=== PATIENT | female | born 1955 | race Caucasian/White ===

== ENCOUNTER 2019-05-08 13:40 | Outpatient (CLI) | payer OTHER, SELFPAY ==
[2019-05-08 15:19] LABS: Cholesterol 259 mg/dL (0-200); HDL Direct 61 mg/dL; Triglycerides 122 mg/dL (<150)
[2019-05-08 15:30] LABS: LDL Cholesterol Direct 154 mg/dL
[2019-05-08 15:52] LABS: Hemoglobin A1C 5.5 % (<5.7)
== END 2019-05-08 13:41 | disposition home or self-care (01) ==
DX: R53.83 Other fatigue (principal); E78.5 Hyperlipidemia, unspecified
CPT/HCPCS: 36415; 80061; 83036

== ENCOUNTER 2020-08-18 07:55 | Outpatient (CLI) | payer OTHER, SELFPAY ==
[2020-08-18 08:43] LABS: Hematocrit 39.6 % (37.0-47.0)
[2020-08-18 09:01] LABS: Add Urine Microscopic? NO; Appearance Urine Clear (Clear); Bilirubin Urine Negative (Negative); Blood Urine Negative (Negative); Color Urine Yellow (Yellow); Glucose Urine UA Negative (Negative); Ketones Urine Negative (Negative); Leukocyte Esterase Ur Negative LEU/UL (Negative); Nitrate Urine Negative (Negative); Protein Urine Negative (Negative); Specific Grav Ur 1.025 (1.001-1.035); Urobilinogen Urine Negative mg/dL (<2.0)
[2020-08-18 09:05] LABS: Anion Gap 7 mmol/L (8-16); Blood Urea Nitrogen 15 mg/dL (7-17); Calcium 9.2 mg/dL (8.4-10.2); Carbon Dioxide 28 mmol/L (22-30); Chloride 105 mmol/L (98-107); Cholesterol 192 mg/dL (0-200); Estimated Glomerular Filt Rate > 60; Glucose 100 mg/dL (65-105); HDL Direct 73 mg/dL; Potassium 4.3 mmol/L (3.4-5.0); Sodium 140 mmol/L (137-145); Triglycerides 57 mg/dL (<150)
[2020-08-18 09:15] LABS: LDL Cholesterol Direct 83 mg/dL
== END 2020-08-18 07:56 | disposition home or self-care (01) ==
LOC: ANHLAB 07:59
DX: E78.5 Hyperlipidemia, unspecified (principal)
CPT/HCPCS: 36415; 80048; 80061; 81003; 85014; 85018

== ENCOUNTER → 2021-09-04 16:55 | Outpatient (CLI) | payer OTHER, SELFPAY ==
--- NOTE | ~2021-09-04 | XR_ITS ---
EXAM: XR wrist LT min 3V DATE: 09/04/2021 17:20 HISTORY: Primary osteoarthritis, left wrist . COMPARISON: None available. FINDINGS: Normal mineralization. No fracture or dislocation. No lytic or blastic lesion. Joint space s are maintained. No erosion or periosteal change. Soft tissues within normal limits. IMPRESSION: Normal left wrist radiograph findings. Reviewed, dictated and finalized at location K.
== END ==
PROVIDERS: PCP Family Medicine; Visit Provider Plastic Surgery
DX: M19.032 Primary osteoarthritis, left wrist (principal)
CPT/HCPCS: 73110

== ENCOUNTER → 2021-09-14 11:50 | Outpatient (CLI) | payer OTHER, SELFPAY ==
--- NOTE | ~2021-09-14 | US_ITS ---
EXAMINATION: US soft tissue UE LT DATE: 09/14/2021 12:07 INDICATION: Left thenar mass. Ganglion cyst. Pain. TECHNIQUE: Multiple grayscale and Doppler ultrasound images of the region of concern at the anterolat eral left carpus near the first metacarpophalangeal joint were obtained. COMPARISON: Radiographs dated 09/04/2021 FINDINGS: No ganglion cyst or other abnormal masses or fluid collections identified. As marginal osteophytes co nsistent with osteoarthritis at one of the joint space near the region of concern although the identi ty of the joints is noted to be ascertained from the provided images. IMPRESSION: 1. Osteoarthritis small marginal osteophytes at one of the joints in the region of concern. No gangli on cyst or other abnormal masses or fluid collections. Reviewed, dictated and finalized at location A. IMPRESSION: 1. Osteoarthritis small marginal osteophytes at one of the joints in the region of concern. No ganglion cyst or other abnormal masses or fluid collections.
== END ==
PROVIDERS: PCP Family Medicine; Visit Provider Plastic Surgery
DX: R22.32 Localized swelling, mass and lump, left upper limb (principal); M19.072 Primary osteoarthritis, left ankle and foot
CPT/HCPCS: 76882

== ENCOUNTER 2021-11-01 13:15 | Outpatient (RCR) | payer OTHER, SELFPAY ==
--- NOTE | 2021-10-11 15:00 | OTOPEVAL1 ---
Evaluation Information Assessment Status Evaluation Diagnosis Chronic pain left thenar mass Onset about 6 months ago Subjective Information Patient reports pain and tenderness in the thenar eminence of the left palm. She can recreate sharp , shooting pain when she hyperextends her thumb. X-rays negative for OA. US negative for cyst. She notes that she was diagnosed with bilateral carpal tunnel about 8 years ago. She states that functionally she has figured out ways to avoid putting pressure to this area and has been compensating by using her right hand more. Reported Pain Level Pain Score 2: Self Report Additional Pain Score Comments Pain with pressure to the thenar eminence or when thumb is hyperextended. Reaches 8/10 with pressure/hyperextension, but subsides to 0/10 quickly. Assessment OT Clinical Summary Juanita is a 66 year-old, right handed female with atypical left hand pain, localized to the left thenar eminence. Sensation tests are normal. She has pain with palpation/pressure to this area as well as with thumb hyperextension. Symptoms could be consistent with nerve irritation of the recurrent branch of the median nerve. Therapy plan - have the patient wear a thumb spica brace x3 weeks to rest this area and complete nerve glides. She is to follow up in 3 weeks to assess the efficacy of this intervention. She verbalizes excellent understanding of all materials. Plan of Care Interventions Therapeutic Exercise,Check Out for Orthotic/Pr OT Services Indicated Yes Treatment Frequency and 0-1x/week for 3 weeks. Duration These treatments will address the objective and functional deficits as defined above. The patient will be advanced safely and appropriately in order for the patient to progress towards his/her prior level of function. Additional exercises will be introduced and as well as a comprehensive home exercise program upon discharge, if needed, ?to ensure carryover of functional gains achieved in the clinic. This treatment plan has been reviewed and agreement upon by the patient.
--- NOTE | 2021-11-01 14:02 | OTOPDC ---
Assessment and note entered by Newton Montiel, JUDITR/Laith, CHT Evaluation Information Assessment Status Discharge Diagnosis chronic pain left thenar mass Onset about 6 months ago Subjective Information Juanita is a 66 year-old, right handed female with atypical left hand pain, localized to the left thenar eminence. Sensation tests are normal. She has pain with palpation/pressure to this area as well as with thumb hyperextension. Symptoms could be consistent with nerve irritation of the recurrent branch of the median nerve. It was recommended that she wear an immobilizer. She declined having a thermoplastic one fabricated in the clinic. Juanita has been resting her hand for 3 weeks. She states she did not end up getting a splint to immobilize the thumb, just has been taking care to not aggravate this area. 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 She states the hand is 40% better. Reported Pain Level Pain Score 0: Self Report Additional Pain Score Comments No pain at rest or when not moving. With active ROM or pressure over the thenar eminence, the pain increases to 5/10. This has reduced from a an 8/10. She notes that overall the pain is decreased, but she continues to have some tenderness in this area. Assessment OT Clinical Summary Assessment today shows patient is making slow, steady progress with reduced pain/reduced nerve irritation. She did not go the immobilization route as recommended. She reports just resting the thumb. Continued to recommend a brace, especially if her pain plateaus. At this time she is independent with all materials and declines need to follow up further. No continued skilled OT indicated at this time. Plan of Care OT Services Indicated No
== END 2021-11-01 15:19 | disposition home or self-care (01) ==
LOC: ANHOT 13:15
PROVIDERS: PCP Family Medicine; Visit Provider Plastic Surgery
DX: M79.645 Pain in left finger(s) (principal)
CPT/HCPCS: 97110; 97166

== ENCOUNTER → 2021-11-24 09:53 | Outpatient (CLI) | payer OTHER, SELFPAY ==
--- NOTE | ~2021-11-24 | DEXA_ITS ---
Bone Density Report Name: MARTIN COHEN Age: 66 Sex: Female Ethnicity: White Date of : 1955 Indication: postmenopausal; screening for osteoporosis; Referring Provider: JEWEL HYATT Study: Bone densitometry was performed. Exam Date: November 24, 2021 Accession number: [id number] Bone Density: Region BMD T-score Z-score Classification AP Spine (L1-L4) 0.898 -1.4 0.4 Osteopenia Femoral Neck (Left) 0.615 -2.1 -0.6 Osteopenia Total Hip (Left) 0.850 -0.8 0.4 Normal Femoral Neck (Right) 0.600 -2.2 -0.8 Osteopenia Total Hip (Right) 0.784 -1.3 -0.1 Osteopenia Total Hip Mean 0.817 -1.1 0.2 Osteopenia World Health Organization criteria for BMD impression classify patients as: Normal (T-score at or above -1.0), Osteopenia (T-score between -1.0 and -2.5), or Osteoporosis (T-score at or below -2.5). 10-year Fracture Risk(1): Major Osteoporotic Fracture 11% Hip Fracture 1.7% Reported Risk Factors: [place] (), Neck BMD=0.600, BMI=28.4 (1) FRAX(R) Version 3.08. Fracture probability calculated for an untreated patient. Fracture probability may be lower if the patient has received treatment. Clinical Information Provided by Patient: Patient maximum height was 63.0 Menopause Age: 57 Drinks caffeinated beverages Onset of menses at age 16 Number of children 2 Impression: The patient has low bone mass, based on the Right Femoral Neck T-score. The patient has an estimated ten-year risk of hip fracture of 1.7% and an estimated ten-year risk of major fracture of 11%, based on the WHO FRAX algorithm. Discussion: BONE DENSITY IS LOW AT ONE OR MORE SKELETAL SITES. This patient's lowest T-score is low at one or more skeletal sites. It meets the World Health Organization's (WHO) criteria for ?low bone mass? (T-score between -1.0 and -2.5). The patient's 10-year risk of fracture as calculated by FRAX is less than the threshold where pharmacological therapy is recommended by the National Osteoporosis Foundation (NOF). However, all treatment decisions require clinical judgment and consideration of individual patient factors, including patient preferences, comorbidities, previous drug use, risk factors not captured in the FRAX model (e.g., frailty, falls, vitamin D deficiency, increased bone turnover, interval significant decline in bone density) and possible under or overestimation of fracture risk by FRAX. The patient should follow a healthful lifestyle (good nutrition with adequate calcium and vitamin D, and appropriate weight-bearing exercise). Follow-Up: Consider repeating this study in 2 to 3 years to reassess this patient's status, or sooner if there is some new clinical indication. Reported by: ELIDA on 11/24/2021 10:17:00 AM. Reviewed, dictated and
== END ==
PROVIDERS: PCP Family Medicine; Visit Provider Physician Assistant
DX: Z78.0 Asymptomatic menopausal state (principal); M85.88 Other specified disorders of bone density and structure, other site; M85.852 Other specified disorders of bone density and structure, left thigh; M85.851 Other specified disorders of bone density and structure, right thigh
CPT/HCPCS: 77080

== ENCOUNTER 2021-12-12 07:09 | Outpatient (CLI) | payer OTHER, SELFPAY ==
[2021-12-12 07:35] LABS: Basophils Percent Auto 0.7 % (0.2-1.2); Eosinophils Absolute Auto 0.2 K/mm3 (0-0.3); Eosinophils Percent Auto 3.3 % (0-4.4); Hematocrit 42.3 % (37.0-47.0); Immature Granulocyte Absolute 0.02 K/mm3 (0.00-0.031); Immature Granulocyte Percent A 0.4 % (0-0.5); Mean Corpuscular HGB Conc 33.1 g/dl (32-36); Mean Corpuscular Hemoglobin 31.1 pg (26-34); Mean Platelet Volume 8.8 fl (7.4-10.4); Monocytes Absolute Auto 0.4 K/mm3 (0.1-0.6); Monocytes Percent Auto 6.7 % (2.6-8.5); Neutrophils Absolute Auto 2.8 K/mm3 (1.3-6.7); Neutrophils Percent Auto 50.9 % (45.5-73.1); Platelet Count Result 330 k/mm3 (150-375); Red Cell Distribution Width 12.4 % (11.5-14.5); White Blood Count 5.5 K/mm3 (4.5-10.0)
[2021-12-12 07:39] LABS: Alanine Aminotransferase 18 U/L (6-35); Albumin Level 4.4 g/dL (3.5-5.1); Alkaline Phosphatase 49 U/L (38-126); Anion Gap 11 mmol/L (8-16); Aspartate Amino Transferase 28 U/L (14-36); Bilirubin,Total 0.4 mg/dL (0.2-1.3); Blood Urea Nitrogen 17 mg/dL (7-17); Carbon Dioxide 29 mmol/L (22-30); Chloride 102 mmol/L (98-107); Cholesterol 188 mg/dL (0-200); Estimated Glomerular Filt Rate 56; Glucose 111 mg/dL (65-110); HDL Direct 68 mg/dL; Potassium 4.3 mmol/L (3.4-5.0); Sodium 142 mmol/L (137-145); Triglycerides 70 mg/dL (<150)
[2021-12-12 07:43] LABS: Appearance Urine Clear (Clear); Bilirubin Urine Negative (Negative); Blood Urine Negative (Negative); Color Urine Yellow (Yellow); Glucose Urine UA Negative (Negative); Ketones Urine Negative (Negative); Leukocyte Esterase Ur Negative LEU/UL (NEGATIVE); Nitrate Urine Negative (Negative); Protein Urine Negative (Negative); Urobilinogen Urine 0.2 mg/dL (<2.0)
[2021-12-12 07:50] LABS: LDL Cholesterol Direct 87 mg/dL
[2021-12-12 08:17] LABS: Add Urine Microscopic? NO
== END 2021-12-12 07:10 | disposition home or self-care (01) ==
LOC: ANHLAB 07:10
PROVIDERS: PCP Family Medicine; Visit Provider Physician Assistant
DX: Z00.00 Encounter for general adult medical examination without abnormal findings (principal); E78.5 Hyperlipidemia, unspecified; F32.9 Major depressive disorder, single episode, unspecified; K21.9 Gastro-esophageal reflux disease without esophagitis
CPT/HCPCS: 36415; 80053; 80061; 81003; 84443; 85025

== ENCOUNTER 2022-01-19 10:45 | Outpatient (CLI) | payer OTHER, SELFPAY ==
--- NOTE | ~2022-01-19 | MM_ITS ---
EXAMINATION: MM screening robby BI w daniel HISTORY: Screening mammogram TECHNIQUE: Craniocaudal and mediolateral oblique 3-D tomosynthesis images were obtained and synthetic 2-D images were generated. CAD analysis was submitted and interpreted. COMPARISON: No prior mammogram is available for comparison at this institution. BREAST PARENCHYMAL COMPOSITION: There are scattered areas of fibroglandular density. FINDINGS: No suspicious mass, calcification, or architectural distortion are identified in either bridger ast to suggest malignancy. IMPRESSION: 1. No mammographic evidence of malignancy. 2. Recommend routine screening mammography in one year. BI-RADS Category 1: Negative Reviewed, dictated and finalized at location A. E RELINER
== END 2022-01-19 10:46 | disposition home or self-care (01) ==
LOC: ANHIMG 10:48
PROVIDERS: PCP Family Medicine; Visit Provider Family Medicine
DX: Z12.31 Encounter for screening mammogram for malignant neoplasm of breast (principal)
CPT/HCPCS: 77063; 77067

== ENCOUNTER 2022-01-25 02:07 | Day surgery (SDC) | payer OTHER, SELFPAY ==
[2022-01-15 15:44] VITALS: BMI 27.8
[2022-01-19 13:27] VITALS: BMI 28.3
--- NOTE | 2022-01-24 17:15 | PM.HPGS ---
History of Present Illness History of Present Illness Consent: Risks, benefits, and alternatives have been discussed and questions answered. Patient agrees to proceed with procedure. Chief complaint: screening colonoscopy Narrative: Juanita Cancino is a 66 year old female Who was referred for colon cancer screening. her last colonoscopy was about 10 years ago. Review of Systems Review of Systems: All systems reviewed & are unremarkable except as noted in HPI and below PMFSH Past Medical History Medical History Depression GERD (gastroesophageal reflux disease) HLD (hyperlipidemia) Overweight (BMI 25.0-29.9) Surgical History Surgical History History of appendectomy History of carpal tunnel release History of section History of eye surgery History of rectal surgery Family History Family History Mother Diabetes mellitus Sibling Cerebrovascular accident Social History Social History Smoking status: Never smoker Second hand tobacco smoke exposure: No Alcohol intake: current Alcohol use details: rarely Substance use: never Substance use type: does not use Living arrangements: with family Gender identity (if verbalized by the patient): Female Sexual Orientation (if Verbalized by the Patient): Straight or Heterosexual Spiritual care concerns: No Meds Home Medications and Allergies Home Medications Medication Instructions Recorded Confirmed Type aspirin 81 mg tablet,delayed 81 mg PO DAILY 09/26/20 01/25/22 History release venlafaxine 75 mg tablet,extended 225 mg PO DAILY 09/26/20 01/25/22 History release 24 hr rosuvastatin 5 mg tablet (Crestor) 5 mg PO DAILY #90 tabs 09/14/21 01/25/22 Rx esomeprazole magnesium 40 mg 40 mg PO DAILY #90 caps 12/14/21 01/25/22 Rx capsule,delayed release (Nexium) Allergies Allergy/AdvReac Type Severity Reaction Status Date / Time No Known Allergies Allergy Verified 01/25/22 10:07 Exam Const: General: alert Orientation/consciousness: patient oriented x3 Resp: Auscultation: clear to auscultation bilaterally Cardio: Rhythm: regular rhythm GI: GI Palp: Yes Soft to palpation and No Tenderness to palpation present (GI) Neuro: General: patient oriented x3 Assessment and Plan Assessment and plan (1) Colon cancer screening: Code(s): Z12.11 - Encounter for screening for malignant neoplasm of colon Status: Acute Assessment and Plan: Colonoscopy with possible biopsy or polypectomy or cautery or injection of substances.
--- NOTE | 2022-01-25 09:05 | WPDANESEPPF ---
Anes - Initial Pre Proc Eval Procedure: Operation Date: 01/25/22 11:00 Proposed Procedures p Screening Colonoscopy - Jayant Muñoz MD Date/Time: 01/25/22 09:05 Surgeon: Jayant Muñoz MD Pre Op Diagnosis: screening colonoscopy Patient Data Age: 66 Gender: F Height: 1.59 m Weight: 71.5 kg Allergies Allergy/AdvReac Type Severity Reaction Status Date / Time No Known Allergies Allergy Verified 01/25/22 10:07 Home Medications Medication Instructions Recorded Confirmed Type aspirin 81 mg tablet,delayed 81 mg PO DAILY 09/26/20 01/25/22 History release venlafaxine 75 mg tablet,extended 225 mg PO DAILY 09/26/20 01/25/22 History release 24 hr rosuvastatin 5 mg tablet (Crestor) 5 mg PO DAILY #90 tabs 09/14/21 01/25/22 Rx esomeprazole magnesium 40 mg 40 mg PO DAILY #90 caps 12/14/21 01/25/22 Rx capsule,delayed release (Nexium) Patient hx anesthesia problems: none Family hx anesthesia problems: none Results Review: All pre-operative results and documents have been reviewed as part of the pre-operative evaluation. [facility] Past Medical History Medical History (Updated 01/25/22 @ 09:06 by Efra Sylvester MD) Depression GERD (gastroesophageal reflux disease) HLD (hyperlipidemia) Overweight (BMI 25.0-29.9) Surgical History Surgical History History of appendectomy History of carpal tunnel release History of section History of eye surgery History of rectal surgery Family History Family History Mother Diabetes mellitus Sibling Cerebrovascular accident Social History Social History Smoking status: Never smoker Second hand tobacco smoke exposure: No Alcohol intake: current Alcohol use details: rarely Substance use: never Substance use type: does not use Living arrangements: with family Gender identity (if verbalized by the patient): Female Sexual Orientation (if Verbalized by the Patient): Straight or Heterosexual Spiritual care concerns: No Anes - Eval Final PreProcedure Day of Procedure 01/25/22 09:05 Patient weight: overweight Heart: regular rate and rhythm Lungs: clear to auscultation and normal air movement Airway: Mallampati scale class II Neurological: alert and oriented Last oral intake: >/= 8 hours ASA classification: II Emergent: no Anesthetic plan: proceed Anesthesia type and monitoring: general GIVS Results Review: All pre-operative results and documents have been reviewed as part of the pre-operative evaluation. Informed Consent: The patient's anesthetic plan and its attendant risks and benefits were discussed with the patient/family/POA. Questions were solicited and answers provided to the satisfaction of the patient/family/POA.
[2022-01-25 10:00] VITALS: BP 137/71; PULSE 71; RESP 18; TEMP 36.6; O2SAT 98; BMI 27.5
[2022-01-25] MEDS: LACTATED RINGERS 1,000 ML 150 ML IV CONT (10:21)
[2022-01-25 11:29] VITALS: BP 110/58; PULSE 63; RESP 20; O2SAT 96
[2022-01-25 11:39] VITALS: BP 111/68; PULSE 60; RESP 15; O2SAT 98
[2022-01-25 11:49] VITALS: BP 126/89; PULSE 58; RESP 20; O2SAT 98
== END 2022-01-25 12:02 | disposition home or self-care (01) ==
PROVIDERS: PCP Family Medicine; Visit Provider Internal Medicine Gastroenterology
PROC: 0DJD8ZZ Inspection of Lower Intestinal Tract, Via Natural or Artificial Opening Endoscopic (ICD-10-PCS; CPT 45378; principal; 2022-01-25 11:00)
DX: Z12.11 Encounter for screening for malignant neoplasm of colon (principal); E78.5 Hyperlipidemia, unspecified; K21.9 Gastro-esophageal reflux disease without esophagitis; F32.A Depression, unspecified
CPT/HCPCS: 45378; J7120

== ENCOUNTER 2022-09-01 08:13 | Outpatient (CLI) | payer MEDICARE, SELFPAY ==
[2022-09-01 09:59] LABS: Anion Gap 7 mmol/L (8-16); Blood Urea Nitrogen 18 mg/dL (7-17); Carbon Dioxide 29 mmol/L (22-30); Chloride 102 mmol/L (98-107); Estimated Glomerular Filt Rate 56; Glucose 95 mg/dL (65-110); Potassium 4.4 mmol/L (3.4-5.0); Sodium 138 mmol/L (137-145)
[2022-09-01 10:30] LABS: Hemoglobin A1C 5.6 % (<5.7)
== END 2022-09-01 08:14 | disposition home or self-care (01) ==
LOC: ANHLAB 08:16
PROVIDERS: PCP Family Medicine; Visit Provider Physician Assistant
DX: R73.01 Impaired fasting glucose (principal); N28.9 Disorder of kidney and ureter, unspecified
CPT/HCPCS: 36415; 80048; 83036

== ENCOUNTER 2023-02-12 07:21 | Outpatient (CLI) | payer MEDICARE, SELFPAY ==
[2023-02-12 08:05] LABS: Appearance Urine Clear (Clear); Bilirubin Urine Negative (Negative); Blood Urine Negative (Negative); Color Urine Yellow (Yellow); Glucose Urine UA Negative (Negative); Ketones Urine Negative (Negative); Leukocyte Esterase Ur Negative LEU/UL (NEGATIVE); Nitrate Urine Negative (Negative); Protein Urine Negative (Negative); Specific Grav Ur 1.023 (1.001-1.035); Urobilinogen Urine 0.2 mg/dL (<2.0); pH Urine 6.5 (5.0-9.0)
[2023-02-12 08:07] LABS: Alanine Aminotransferase 16 U/L (6-35); Alkaline Phosphatase 53 U/L (38-126); Anion Gap 5 mmol/L (8-16); Aspartate Amino Transferase 27 U/L (14-36); Bilirubin,Total 0.4 mg/dL (0.2-1.3); Blood Urea Nitrogen 17 mg/dL (7-17); Calcium 8.9 mg/dL (8.4-10.2); Carbon Dioxide 29 mmol/L (22-30); Chloride 106 mmol/L (98-107); Cholesterol 188 mg/dL (0-200); Estimated Glomerular Filt Rate > 60; Glucose 95 mg/dL (65-110); HDL Direct 72 mg/dL; Potassium 3.9 mmol/L (3.4-5.0); Sodium 140 mmol/L (137-145); Triglycerides 60 mg/dL (<150)
[2023-02-12 08:13] LABS: Hemoglobin A1C 5.7 % (<5.7)
[2023-02-12 08:21] LABS: LDL Cholesterol Direct 89 mg/dL
[2023-02-12 08:30] LABS: Add Urine Microscopic? NO
== END 2023-02-12 07:22 | disposition home or self-care (01) ==
PROVIDERS: PCP Family Medicine; Visit Provider Family Medicine
DX: E78.5 Hyperlipidemia, unspecified (principal); R73.01 Impaired fasting glucose; R53.83 Other fatigue; Z00.00 Encounter for general adult medical examination without abnormal findings
CPT/HCPCS: 36415; 80053; 80061; 81003; 83036; 84443

== ENCOUNTER 2024-02-01 09:29 | Emergency (ER) | payer MEDICARE, SELFPAY ==
[2024-02-01 09:46] VITALS: BP 112/60; PULSE 71; RESP 18; TEMP 36.8; O2SAT 99
--- NOTE | 2024-02-01 10:15 | ED_ITS ---
HPI - URI/Sore Throat General Chief Complaint: Upper Respiratory Infection Stated Complaint: cough and mucus Source: patient Mode of arrival: ambulatory Limitations: no limitations History of Present Illness HPI Narrative: 68-year-old female presents to [facility] with complaints of 5 days history of chest congestion and productive cough of white colored phlegm for the past 5 days. Patient reports that she feels that her symptoms are worsening. Patient reports that she has been taking leftover Tessalon Perles, [id number] Mucinex D and cough suppressants with little relief. Patient is nonsmoker. Pat nasreen denies recent travel. Patient denies fever, body aches or chills. MD elicited complaint: cough and other (Chest congestion) Onset (ago): day(s) (5) Consistency: intermittent Able to tolerate fluids by mouth: Yes Treatments prior to arrival: cold medicine Related Data Home Medications ?Medication ?Instructions ?Recorded ?Confirmed ?Last Taken ?Type aspirin 81 mg tablet,delayed 81 mg PO DAILY 09/26/20 12/11/23 Unknown History release venlafaxine 75 mg tablet,extended 225 mg PO DAILY 09/26/20 12/11/23 Unknown History release 24 hr Allergies Allergy/AdvReac Type Severity Reaction Status Date / Time No Known Allergies Allergy Verified 02/01/24 10:00 Review of Systems Constitutional: Constitutional: Denies chills, Denies fatigue, Denies fever(s) and Denies weakness ENT: Denies dizziness, Denies epistaxis, Reports nasal congestion and Denies sore throat Respiratory: Respiratory: Reports cough, Denies dyspnea and Denies wheezing Gastrointestinal: Gastrointestinal: Denies diarrhea, Denies nausea and Denies vomiting Genitourinary: Genitourinary: Denies dysuria Integumentary/Breasts: Skin/Breast: Denies rash Neurologic: Denies headache(s) [facility] Past Medical History Medical History Overweight (BMI 25.0-29.9) Depression GERD (gastroesophageal reflux disease) HLD (hyperlipidemia) Surgical History Surgical History History of eye surgery History of rectal surgery History of carpal tunnel release History of section History of appendectomy Family History Family History Mother Diabetes mellitus Sibling Cerebrovascular accident Social History Social History Smoking status: Never smoker Second hand tobacco smoke exposure: No Alcohol intake: current Alcohol use details: rarely Substance use: never Substance use type: does not use Living arrangements: with family Occupation/Education: retired Gender identity (if verbalized by the patient): Female Sexual Orientation (if Verbalized by the Patient): Straight or Heterosexual Spiritual care concerns: No Comments At time of signature, I agree with nursing past medical, surgical, social and family history. There is no relevant family history pertinent to the presenting complaint. Exam 2 Const: General: healthy appearing and no acute distress Nutritional Appearance: well nourished Orientation/consciousness: patient oriented x3 Limitations: no limitations HENMT: Head: normal to inspection Ears: external ears normal, TM's normal bilaterally and EAC's normal Face/Nose/Sinus: Normal external nose present and Normal nares present Face and sinus: normal facial exam Mouth: Yes Normal oral and palatal mucosa present, Yes lip normal and Yes moist mucous membranes Teeth and gingiva: dentition normal Throat: posterior oropharynx normal and uvula midline Other: Mild hoarse voice and moderate nasal congestion noted Eyes: Conjunctivae: conjunctivae normal Pupils: Equal, round and reactive pupils present Neck: Neck: normal visual inspection Chest: Chest palpation & inspection: normal inspection of the chest Resp: Effort & Inspection: normal respiratory effort and not labored Auscultation: clear to auscultation bilaterally, no crackles, no rales, no rhonchi and no wheezes Cardio: Rate: regular rate Rhythm: regular rhythm Heart sounds: no murmurs Skin: General skin exam: normal color Rashes: no rashes Wounds: no wounds Neuro: General: patient oriented x3 Speech: normal speech Gait exam (Neuro): Normal gait present Psych: Affect: normal affect Attitude: cooperative Course Course Level of Care: Express Care Visit Vital Signs Vital signs: Vital Signs Temperature 36.8 C 02/01/24 09:46 Pulse Rate 71 02/01/24 09:46 Respiratory Rate 18 02/01/24 09:46 Blood Pressure 112/60 02/01/24 09:46 Pulse Oximetry 99 02/01/24 09:46 Oxygen Delivery Room Air 02/01/24 09:46 Temperature 36.8 C 02/01/24 09:46 Pulse Rate 71 02/01/24 09:46 Respiratory Rate 18 02/01/24 09:46 Blood Pressure 112/60 02/01/24 09:46 Pulse Oximetry 99 02/01/24 09:46 Oxygen Delivery Room Air 02/01/24 09:46 MDM - URI/Sore Throat MDM Narrative Medical decision making narrative: Educated patient to take antibiotic as prescribed. Informed patient continues to take Tessalon Perles as she has some left over at home. Educated patient follow-up with primary care provider if symptoms not improved Differential Diagnosis Differential diagnosis: Likely otitis media, sinusitis and viral infection Critical Care Time Critical Care Time Critical Care Time: No Discharge Plan Discharge Clinical Impression: Upper respiratory infection Qualifiers: URI type: unspecified URI Qualified Code(s): J06.9 - Acute upper respiratory infection, unspecified Patient Disposition: Home, Self-Care Condition: Stable Instructions: Antibiotic Form, Upper Respiratory Infection (ED) Patient Language: Paraguayan Prescriptions: New azithromycin [Zithromax Z-Kristian] 250 mg tablet See Rx Instructions .ROUTE .COMPLEX Qty: 6 0RF Rx Instructions: For 250 mg dose pack: take 500 mg today (day 1), then 250 mg for 4 days (days 2-5) No Action venlafaxine 75 mg tablet extended release 24hr 225 mg PO DAILY aspirin 81 mg tablet,delayed release (DR/EC) 81 mg PO DAILY esomeprazole magnesium [Nexium] 40 mg capsule,delayed release(DR/EC) 40 mg PO DAILY Qty: 90 1RF rosuvastatin 5 mg tablet See Rx Instructions .ROUTE .COMPLEX Qty: 90 3RF Dose Instruction: TAKE 1 TABLET BY MOUTH DAILY Rx Instructions: TAKE 1 TABLET BY MOUTH DAILY Follow-up/Referrals: Rolando Guevara MD [Primary Care Provider] - Time of Disposition: 10:22
--- OUTSIDE RECORDS SUMMARY | 2024-02-08 11:34 | XMS_ITS | Encounter Summary ---
Author Organization [facility] Address [address] [address] Care Team Providers Care Saw Feeder Name Role Phone Rolando Guevara MD Primary Care Provider [phone] Encounter Details Date Type Department Care Team (Latest Contact Info) Description 03/27/2023 Travel Social History Tobacco Use Types Packs/Day Years Used Date Smoking Tobacco: Never Smokeless Tobacco: Never Alcohol Use Standard Drinks/Week Comments No 0 (1 standard drink = 0.6 oz pur e alcohol) PHQ-2 Answer Date Recorded Patient Health Questionnaire-2 Score 1 03/27/2023 Sex and Gender Information Value Date Recorded Sex Assigned at Not on file Gender Identity Not on file Sexual Orientation Not on file documented as of this encounter Plan of Treatment Not on file documented as of this encounter Visit Diagnoses Not on filedocumented in this encounter Care Teams Saw Feeder Relationship Specialty Start Date End Date Rolando Guevara MD [address] [place] [address] PCP - General 12/24/20 documented as of this encounter
--- OUTSIDE RECORDS SUMMARY | 2024-02-08 11:34 | XMS_ITS | Encounter Summary ---
Author Organization [facility] Address [address] [facility] [address] [place] [address] Care Team Providers Care Harvest Crew Supervisor Name Role Phone Luis E Pena MD Primary Care Provider [phone] Reason for Referral * Procedure (Routine) - Closed Specialty Diagnoses / Procedures Referred By Contac t Referred To Contact Diagnoses Trigger ring finger of right hand Procedures Hand / Upper Extremity Arthrocentesis: R ring A1 Valeriy Taylor MD [address] [place] [address] [address] [place] [address] Phone: tel: fax: [facility] Referral ID Status Reason Start Date Expiration Date Visits Re quested Visits Authorized [id number] Closed 12/01/2019 12/30/2020 1 1 * Procedure (Routine) - Closed Specialty Diagnoses / Procedures Referred By Contac t Referred To Contact Diagnoses De Quervain's syndrome (tenosynovitis) Procedures De Quervain's injection: L extensor compartment 1 Valeriy Taylor MD [address] [place] [address] [address] [place] [address] Phone: tel: fax: [facility] Referral ID Status Reason Start Date Expiration Date Visits Re quested Visits Authorized [id number] Closed 12/01/2019 12/30/2020 1 1 Reason for Visit * Reason Comments Pain Pain Encounter Details Date Type Department Care Team (Late st Contact Info) Description 12/01/2019 10:45 AM CDT Office Visit 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 female. Visit Date: 12/01/2019 Chief Complaint: Chief Complaint Patient presents with ??? Left Wrist - Pain ??? Right Ring Finger - Pain HPI: The patient is a 64-year-old [id number] female seen for evaluation of bilateral hand pain.She reports having pain at the left wrist and at the right ring finger. In review of her records I last saw her about a year ago and performed an injection in the left 1st extensor compartment. She reports having some recurring pain at the radial aspect of her left wrist and new onset of pain in the right ring finger. She denies any accident or injury. She denies any systemic symptoms or modifying factors. ROS: Constitutional: Negative for appetite change. HENT: Negative for drooling and facial swelling. Eyes: Negative for photophobia. Respiratory: Negative for choking and stridor. Gastrointestinal: Negative for abdominal distention. Endocrine: Negative for polydipsia. Genitourinary: Negative for dysuria and genital sores. Neurological: Negative for facial asymmetry and speech difficulty. Hematological: Negative for adenopathy. Physical Exam: The patient is pleasant and alert. They are cooperative and well groomed. Walk with a normal gait. On examination upper extremities skin is warm and dry. There is brisk capillary refill. There are noulcerations or trophic changes. No atrophy is noted no swelling of the epitrochlear lymph nodes. Onexamination of her left wrist she has tenderness well localized at the 1st extensor compartment. She has pain with passive ulnar deviation of her wrist and pain with resisted thumb extension. On her right hand she has tenderness to palpation over the distal palmar crease overlying the flexor tendonthe ring finger. There is a palpable enlargement on the flexor tendon proximal to the A1 hailey with active composite flexion X-rays/Imaging: Assessment/Plan Diagnoses and all orders for this visit: De Quervain's syndrome (tenosynovitis) (Primary) Trigger ring finger of right hand Treatment / Plan: I discussed the diagnosis, anatomy, and treatment options of both de Quervain stenosing tenosynovitis and trigger digit. I have illustrated these using plastic models and diagrams. I discussed options of splint wear, intrathecal injection, and operative release. After thorough discussion she is requesting injection of both sites. I have asked for post car follow-up in a couple weeks to reports response to this intervention. De Quervain's injection: L extensor compartment 1 Performed by: Valeriy Taylor MD Authorized by: Valeriy Taylor MD De Quervain's Injection: Consent Given by: Patient Site marked: the procedure site was marked Timeout: prior to procedure the correct patient, procedure, and site was verified Verbal consent obtained?: Yes Written consent obtained?: No Supporting Documentation: Indications: Pain and tendon swelling Procedure Details: Condition: de Quervain's Site: L extensor compartment 1 Prep: patient was prepped and draped in usual sterile fashion Prep: patient was prepped using a clean technique Medications: 1 mL lidocaine 10 mg/mL (1 %); 20 mg triamcinolone 40 mg/mL Hand / Upper Extremity Arthrocentesis: R ring A1 Performed by: Valeriy Taylor MD Authorized by: Valeriy Taylor MD Hand/Upper Extremity Injection: Consent Given by: Patient Site marked: the procedure site was marked Timeout: prior to procedure the correct patient, procedure, and site was verified Verbal consent obtained?: Yes Written consent obtained?: No Supporting Documentation: Indications: Pain Procedure Details: Condition: trigger finger Location: Ring finger Site: R ring A1 Prep: patient was prepped and draped in usual sterile fashion Prep: patient was prepped using a clean technique Medications: 1 mL lidocaine 10 mg/mL (1 %); 10 mg triamcinolone 40 mg/mL documented in this encounter Plan of Treatment Not on file documented as of this encounter Procedures Procedure Name Priority Date/Time Associated Diagnosis Comments CT INJECTION 1 TENDON SHEATH/LIGAMENT APONEUROSIS Routine 12/01/2019 10:45 AM CDT Trigger ring finger of right hand CT INJECTION 1 TENDON SHEATH/LIGAMENT APONEUROSIS Routine 12/01/2019 10:45 AM CDT De Quervain's syndrome (tenosynovitis) documented in this encounter Results * CT INJECTION 1 TENDON SHEATH/LIGAMENT APONEUROSIS (12/01/2019 10:45 AM CDT) Narrative Valeriy Taylor MD - 12/01/2019 10:45 AM CDT Valeriy Taylor MD ? 12/01/2019 ??3:12 PM Hand / Upper Extremity Arthrocentesis: R ring A1 Performed by: Valeriy Taylor MD Authorized by: Valeriy Taylor MD Hand/Upper Extremity Injection: ??Consent Given by: ??Patient ??Site marked: the procedure site was marked ?Timeout: prior to procedure the correct patient, procedure, and site was verified ?Verbal consent obtained?: Yes ?Written consent obtained?: No ?? Supporting Documentation: ??Indications: ??Pain Procedure Details: ??Condition: trigger finger ?Location: ??Ring finger ??Site: ??R ring A1 ??Prep: patient was prepped and draped in usual sterile fashion ?Prep: patient was prepped using a clean technique ?Medications: ??1 mL lidocaine 10 mg/mL (1 %); 10 mg triamcinolone 40 mg/mL us Valeriy Taylor MD IN CLINIC/BEDSIDE ORDERABLES Final Result * CT INJECTION 1 TENDON SHEATH/LIGAMENT APONEUROSIS (12/01/2019 10:45 AM CDT) Narrative Valeriy Taylor MD - 12/01/2019 10:45 AM CDT Valeriy Taylor MD ? 12/01/2019 ??3:12 PM De Quervain's injection: L extensor compartment 1 Performed by: Valeriy Taylor MD Authorized by: Valeriy Taylor MD De Quervain's Injection: ??Consent Given by: ??Patient ??Site marked: the procedure site was marked ?Timeout: prior to procedure the correct patient, procedure, and site was verified ?Verbal consent obtained?: Yes ?Written consent obtained?: No ?? Supporting Documentation: ??Indications: ??Pain and tendon swelling Procedure Details: ??Condition: de Quervain's ?Site: ??L extensor compartment 1 ??Prep: patient was prepped and draped in usual sterile fashion ?Prep: patient was prepped using a clean technique ?Medications: ??1 mL lidocaine 10 mg/mL (1 %); 20 mg triamcinolone 40 mg/mL us Valeriy Taylor MD IN CLINIC/BEDSIDE ORDERABLES Final Result documented in this encounter Visit Diagnoses Diagnosis De Quervain's syndrome (tenosynovitis)- Primary Radial styloid tenosynovitis Trigger ring finger of right hand documented in this encounter Administered Medications Inactive Administered Medications - up to 3 most recent administrations Medication Order MAR Action Action Date Dose Rate Site lidocaine (XYLOCAINE) 10 mg/mL (1 %) injection 1 mL 1 mL, One-Time Injection, Starting on Sat12/01/19 at 1511, For 1 dose, Indications: Administration of Local AnesthesiaIndications:Administratio n of Local Anesthesia Given 12/01/2019 3:11 PM CDT 1 mL lidocaine (XYLOCAINE) 10 mg/mL (1 %) injection 1 mL 1 mL, One-Time Injection, Starting on Sat12/01/19 at 1511, For 1 dose, Indications: Administration of Local AnesthesiaIndications:Administratio n of Local Anesthesia Given 12/01/2019 3:11 PM CDT 1 mL triamcinolone (KENALOG) 40 mg/mL injection 10 mg 10 mg, intra-articular, One-Time Injection, Starting on Tu12/01/19 at 1511, For 1 doseIndications:Trigger ring finger of right hand Given 12/01/2019 3:11 PM CDT 10 mg triamcinolone (KENALOG) 40 mg/mL injection 20 mg 20 mg, intra-articular, One-Time Injection, Starting on Sat12/01/19 at 1511, For 1 doseIndications:De Quervain's syndrome (tenosynovitis) Given 12/01/2019 3:11 PM CDT 20 mg documented in this encounter Care Teams Harvest Crew Supervisor Relationship Specialty Start Date End Date Luis E Pena MD [address] [place] [address] PCP - General Family Medicine 09/29/18 documented as of this encounter
--- OUTSIDE RECORDS SUMMARY | 2024-02-08 11:34 | XMS_ITS | Encounter Summary ---
Author Organization [facility] Address [address] [place] [address] Care Team Providers Care Plumber Apprentice Name Role Phone Luis E Pena MD Primary Care Provider [phone] Reason for Visit * Reason Onset Date Comments Follow-up 04/29/2019 Encounter Details Date Type Department Care Team (Late st Contact Info) Description 04/29/2019 Telephone [facility] [address] [place] [id number] Carla Reaves MD [address] [facility] OF PSYCHIATRY [facility] [place] [address] Follow-up Social History Tobacco Use Types Packs/Day Years Used Date Smoking Tobacco: Never Smokeless Tobacco: Never Alcohol Use Standard Drinks/Week Comments No 0 (1 standard drink = 0.6 oz pur e alcohol) Sex and Gender Information Value Date Recorded Sex Assigned at Not on file Gender Identity Not on file Sexual Orientation Not on file documented as of this encounter Miscellaneous Notes * Telephone Encounter - Carla Reaves MD - 04/29/2019 10:24 AM CDT [facility] Phone follow up Name: Juanita Cancino Age: [age] year old Date of : 1955 Juanita Cancino is a 64 year old female , domiciled with her , 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 Subjective Juanita Cancino is a 64 year old female with hx of MDD. She stated that she is being ok. She has beenkeeping her distance from people and trying to wash her hands frequently. She reported her depression being under control. Patient denies suicidal ideation, thought or intent, denies homicidal ideation, and auditory/visual hallucinations. She would like to stay on the same medication and will be following up in a couple of months. Outpatient Medication list: Current Outpatient Medications: ??? esomeprazole (NEXIUM) 40 MG capsule, TK 1 C PO D, Disp: , Rfl: 3 ??? rosuvastatin (CRESTOR) 5 MG tablet, TK 1 T PO QD, Disp: , Rfl: 3 ??? traZODone (DESYREL) 50 MG tablet, TAKE 1 TABLET BY MOUTH AT BEDTIME, Disp: 90 tablet, Rfl: 0 ??? venlafaxine XR 24hr (EFFEXOR XR) 75 MG capsule, Take 3 capsules by mouth daily with breakfast, Disp: 270 capsule, Rfl: 3 Review of systems Review of systems (positives in Bold) - Constitutional: fever, chills, and night sweats. - HEENT: sore throat, runny nose, and postnasal drip. - Cardiovascular: palpitations, SOB, chest pain, peripheral edema, and dizziness. - Respiratory: wheezing and cough. - GI: abdominal pain, hurtburn, diarrhea, constipation, nausea, and vomiting. - Musculoskeletal: musculoskeletal pain and restriction in movement. - Neuro: headache, vision changes, weakness, numbness, and tingling. - : urgency, dysuria, change in the urine color, and hematuria. - Skin: rash, petechiae, and cyanosis. - Psych/Behavioral: depression symptoms, hallucinations, anxiety, suicidal ideation, and homicidal ideation. Objective There were no vitals filed for this visit. Wt Readings from Last 3 Encounters: 12/13/17 159 lb 08/30/17 156 lb 3.2 oz 03/21/17 156 lb BP Readings from Last 3 Encounters: 12/13/17 120/79 08/30/17 114/80 03/21/17 130/80 Mental Status Exam: Unable to assess Depression: Patient Health Questionnaire 03/16/2019 02/16/2019 01/12/2019 12/15/2018 11/17/2018 06/04/2018 04/17/2018 Little Interest? 0 1 1 1 1 1 1 Feeling Down? 0 0 0 0 0 0 1 Trouble Sleeping? 1 1 1 1 1 1 1 Feeling Tired? Little Energy? 1 1 1 1 1 1 3 Poor Appetite? Overeating? 0 0 0 0 0 0 1 Feel bad? Failure? 0 1 1 0 0 1 1 Trouble Concentrating? 0 1 2 1 1 1 2 Speaking Slowly or Fidgety? 0 0 1 0 0 1 1 Better of ? 0 0 0 0 0 0 0 Score 2 5 7 4 4 6 11 Data Review Labs: Blood Counts: No results for input(s): WBC, HGB, HCT, PLT, MCV, MCH, MCHC, RDW, RDWSD, MPV in the last 21839 hours. Invalid input(s): RBC Metabolic: No results for input(s): GLU, CREATININE, CALCIUM, ALT, AST, ALB, TSH in the last 47590 hours. Invalid input(s): NA, K, CL, CO2, BUN, ALP, DBILI, , PROT No results for input(s): ESR, CRP in the last 54244 hours. 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 Several medications were used in the past with no improvement. She was started on Effexor and it appears that her depression is better controlled. Since patient seems to be doing well on current medication regimen, we will continue it unchanged. Patient will be scheduled for monthly appointments during winter for closer monitoring (nov-mar). Patient is future oriented, she wouldn't hurt herself because of her mormon belief and her lovefor her grand kids. # Seasonal Affective Disorder, current # Major Depressive Disorder, recurrent, in remission Plan - continue Effexor XR 225mg capsule daily (3 capsules of the 75mg) 3 months supply - The risks and benefits of this medication, the reason for prescribing it, and possible significant serious or frequent side effects were discussed with the patient. Any questions posed were answered. The patient understandsthe above and agrees to proceed with the medication trial. - Follow up in 1 month Patient was advised to call 911 or go to nearest ER if experiencing SI/HI. Carla Reaves MD PGY-4 Department of Psychiatry [phone] documented in this encounter Plan of Treatment Not on file documented as of this encounter Visit Diagnoses Not on filedocumented in this encounter Care Teams Plumber Apprentice Relationship Specialty Start Date End Date Luis E Pena MD [address] [place] [address] PCP - General 06/14/17 12/23/20 documented as of this encounter
--- OUTSIDE RECORDS SUMMARY | 2024-02-08 11:34 | XMS_ITS | Encounter Summary ---
Author Organization [facility] Address [address] [facility] [place] [address] Care Team Providers Care Adhesive Sprayer Name Role Phone Rolando Guevara MD Primary Care Provider [phone] Encounter Details Date Type Department Care Team (Latest Contact Info) Description 06/26/2023 Travel Social History Tobacco Use Types Packs/Day [...] on filedocumented in this encounter Care Teams Adhesive Sprayer Relationship Specialty Start Date End Date Rolando Guevara MD [address] [place] [address] PCP - General 12/24/20 documented as of this encounter
--- OUTSIDE RECORDS SUMMARY | 2024-02-08 11:34 | XMS_ITS | Clinical Summary ---
Author Organization [facility] Address [facility] [place] [address] Care Team Providers Care Bindery Machine Setter Name Role Phone Luis E Pena MD Primary Care Provider Allergies No known active allergies Medications aspirin 81 mg enteric coated tablet Take 81 mg by mouth daily Active esomeprazole DR (NexIUM) 40 mg capsule TK 1 C PO D 3 9 Active rosuvastatin (CRESTOR) 5 mg tablet TK 1 T PO D 6 9 Active venlafaxine XR (EFFEXOR-XR) 75 mg 24 hr capsule TK 1 C PO DAILY WITH BREAKFAST 5 9 Active Active Problems No known active problems Social History Tobacco Use Types Packs/Day Years Used Date Smoking Tobacco: Never Comments Unknown Sex and Gender Information Value Date Recorded Sex Assigned at Not on file 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 [place] [address] PCP - General Family Medicine 09/29/18
--- OUTSIDE RECORDS SUMMARY | 2024-02-08 11:34 | XMS_ITS | Patient Health Summary ---
Author Organization [facility] Address [address] [facility] [place] [address] Care Team Providers Care Spa Consultant Name Role Phone Rolando Guevara MD Primary Care Provider [phone] Note from [facility],non-owned Affiliates and Associated Physician Practices is amultiple site organization consisting of ambulatory clinics and hospital sitesin [place], [place], [place] and [place]. This disclosure is being madepursuant to the Care Everywhere program and may not contain all information available regarding this patient. Last updated 17.[facility] Allergies No known active allergies Medications * Be aware that medications may not be up to date on this document. Alwaysverify current medications with the patient. * esomeprazole (NEXIUM) 40 MG capsule(Started 06/06/2017) TK 1 C PO D 3 refills left * rosuvastatin (CRESTOR) 5 MG tablet(Started 06/07/2017) TK 1 T PO QD 3 refills left * aspirin (ASPIRIN) 81 MG chew tablet Take 1 (one) tablet by mouth once daily * traZODone (DESYREL) 50 MG tablet(Started 12/27/2020) Take 1 (one) tablet by mouth at bedtime * venlafaxine XR 24hr (Effexor XR) 75 MG capsule(Started 06/26/2023) Take 3 (three) capsules by mouth once daily 3 refills by 06/25/2024 Active Problems Problem Noted Date Diagnosed Date Recurrent major depressive disorder, in partial remission 08/30/2017 Seasonal affective disorder 05/20/2014 Resolved Problems Problem Noted Date Diagnosed Date Resolved Date MDD (major depressive disorder) 04/18/2011 02/13/2018 Social History Tobacco Use Types Packs/Day Years Used Date Smoking Tobacco: Never Smokeless Tobacco: Never Tobacco Cessation:Counseling Given: Not Answered Alcohol Use Standard Drinks/Week Comments No 0 (1 standard drink = 0.6 oz pur e alcohol) PHQ-2 Answer Date Recorded Patient Health Questionnaire-2 Score 1 03/27/2023 Sex and Gender Information Value Date Recorded Sex Assigned at Not on file Gender Identity Not on file Sexual Orientation Not on file Last Filed Vital Signs Vital Sign Reading Time Taken Comments Blood Pressure 131/71 06/26/2023 2:36 PM CDT Pulse 79 06/26/2023 2:36 PM CDT Temperature 37.1 ??C (98.7 ??F) 06/26/2023 2:36 PM CD T Respiratory Rate 20 01/18/2022 10:40 AM TEA TASTER Oxygen Saturation 97% 08/06/2022 1:12 PM CDT Inhaled Oxygen Concentration - - Weight 68.9 kg (152 lb) 06/26/2023 2:36 PM CDT Height 157.5 cm (5' 2 ) 06/26/2023 2:36 PM CDT Body Mass Index 27.8 06/26/2023 2:36 PM CDT Procedures * SKIN TEST PPD - POINT OF CARE(Performed 10/08/2018) Performed for Screening for tuberculosis Results * SKIN TEST PPD - POINT OF CARE (10/08/2018 12:41 PM CDT) PPD 0 MM Normal PPd placed 10/06/2018 @ 12:30pm, 10/08/2018 @ 12:33pm Other MISCELLANEOUS SAMPLE S / Unknown 10/08/2018 12:41 PM CDT Reymundo Judd RESIDENCY DIRECTOR-ACCOUNTS PAYABLE PAYROLL COORDINATOR LAB - POINT OF CARE ORDERABLES Care Teams Spa Consultant Relationship Specialty Start Date End Date Rolando Guevara MD [address] [place] [address] PCP - General 12/24/20
--- OUTSIDE RECORDS SUMMARY | 2024-02-08 11:34 | XMS_ITS | Encounter Summary ---
Author Organization [facility] Address [address] [place] [address] Care Team Providers Care Checker Loader Name Role Phone Luis E Pena MD Primary Care Provider [phone] Reason for Visit * Reason Comments PPD Skin Test Placement Encounter Details Date Type Department Care Team (Late st Contact Info) Description 10/06/2018 7:00 PM CDT Office Visit [facility] AT [address] [address] Provider, [facility] Screening for tuberculosis (Primary Dx) Social History Tobacco Use Types Packs/Day Years Used Date Smoking Tobacco: Never Smokeless Tobacco: Never Alcohol Use Standard Drinks/Week Comments No 0 (1 standard drink = 0.6 oz pur e alcohol) Sex and Gender Information Value Date Recorded Sex Assigned at Not on file Gender Identity Not on file Sexual Orientation Not on file documented as of this encounter Patient Instructions * Patient Instructions* Reymundo Judd APRN-CNP - 10/06/2018 12:33 PM CDT Return in 48-72 hours to have ppd read. CLINIC HOURS: Saturday - Saturday: 9am - 7:30pm Saturday & Saturday: 10am-4:30pm (Holidays: hours may vary) documented in this encounter Progress Notes * Reymundo Judd APRN-CNP - 10/06/2018 12:32 PM CDT PPD Placement note Juanita Cancino, 63 year old female is here today for placement of PPD test Reason for PPD test: work Pt taken PPD test before: yes Verified in allergy area and with patient that they are not allergic to the products PPD is made of(Phenol or Tween). Yes Is patient taking any oral or IV steroid medication now or have they taken it in the last month? no Has the patient ever received the BCG vaccine?: no Has the patient been in recent contact with anyone known or suspected of having active TB disease?:no Date of exposure (if applicable): na Name of person they were exposed to (if applicable): na Patient's Country of origin?: [place] O: Alert and oriented in NAD. P: PPD placed on 10/06/2018. Patient advised to return for reading within 48-72 hours. documented in this encounter Plan of Treatment Not on file documented as of this encounter Procedures Procedure Name Priority Date/Time Associated Diagnosis Comments SKIN TEST PPD - POINT OF CARE Routine 10/08/2018 12:41 PM CDT Screening for tuberculosis documented in this encounter Results * SKIN TEST PPD - POINT OF CARE (10/08/2018 12:41 PM CDT) PPD 0 MM Normal PPd placed 10/06/2018 @ 12:30pm, 10/08/2018 @ 12:33pm Other MISCELLANEOUS SAMPLE S / Unknown 10/08/2018 12:41 PM CDT [facility] - POINT OF CARE ORDERABLES documented in this encounter Visit Diagnoses Diagnosis Screening for tuberculosis- Primary Screening examination for pulmonary tuberculosis documented in this encounter Administered Medications Administered Medications Medication Order MAR Action Action Date Dose Rate Site PPD Intradermal Given 10/06/2018 0.1 mL Left Forearm documented in this encounter Care Teams Checker Loader Relationship Specialty Start Date End Date Luis E Pena MD [address] [place] [address] PCP - General 06/14/17 12/23/20 documented as of this encounter
--- OUTSIDE RECORDS SUMMARY | 2024-02-08 11:34 | XMS_ITS | Clinical Summary ---
Author Organization [facility] Address [address] [place] [address] Care Team Providers Care Grades 9 Thru 12 Visiting Teacher Name Role Phone Rloando Guevara MD Primary Care Provider [phone] Source Comments [facility],non-owned Affiliates and Associated Physician Practices is amultiple site organization consisting of ambulatory clinics and hospital sitesin [place], [place], [place] and [place]. This disclosure is being madepursuant to the Care Everywhere program and may not contain all information available regarding this patient. Last updated 17.[facility] Allergies No known active allergies Medications * Be aware that medications may not be up to date on this document. Alwaysverify current medications with the patient. Medication Sig Dispensed Refills Start Date End Date Status esomeprazole (NEXIUM) 40 MG capsule TK 1 C PO D 3 06/06/2017 Active rosuvastatin (CRESTOR) 5 MG tablet TK 1 T PO QD 3 06/07/2017 Active aspirin (ASPIRIN) 81 MG chew tablet Take 1 (one) tablet by mouth once daily Active traZODone (DESYREL) 50 MG tablet Take 1 (one) tablet by mouth at bedtime 90 tablet 12/27/2020 Active Additional Information Patient not taking.Reported on 01/18/2022 venlafaxine XR 24hr (Effexor XR) 75 MG capsule Take 3 (three) capsules by mouth once daily 270 capsule 3 06/26/2023 Active Active Problems Problem Noted Date Diagnosed Date [...] T Respiratory Rate 20 01/18/2022 10:40 AM FABRICATION MANAGER Oxygen Saturation 97% 08/06/2022 1:12 PM CDT Inhaled Oxygen Concentration - - Weight 68.9 kg (152 lb) 06/26/2023 2:36 PM CDT Height 157.5 cm (5' 2 ) 06/26/2023 2:36 PM CDT Body Mass Index 27.8 06/26/2023 2:36 PM CDT Plan of Treatment Health Maintenance Due Date Last Done Comments BONE DENSITY TESTING 1955 COLOGUARD (AGES 45-75) - COLON CA SCREENING 1957 COLON MONITORING 1957 COLONOSCOPY - COLON CA SCREENING 1957 CT COLONOGRAPHY - COLON CA SCREENING 1957 Colorectal Cancer Screening 1957 FIT - COLON CA SCREENING 1957 FLEX SIG - COLON CA SCREENING 1957 HEPATITIS C SCREENING 03/27/1975 DTAP/TDAP/TD VACCINES (1 - Tdap) 1976 ZOSTER VACCINE (1 of 2) 2007 MAMMOGRAM 10/13/2016 10/13/2014, 07/27/2014 SCREENING FOR DIABETES 10/28/2019 PNEUMOCOCCAL VACCINE 65+ (1 of 1 - PCV) 2022 COVID-19 VACCINE (1 - 2023- season) 2023 INFLUENZA VACCINE (#1) 2023 Respiratory Syncytial Virus (RSV) Vaccine Pt: or over 60 yrs (1 - 1-dose 75+ series) 2032 DEPRESSION SCREENING Completed 03/27/2023, 11/07/2022, 08/06/2022, Additional history exists HEPATITIS B VACCINE Aged Out No longe r eligible based on patient's age to complete this topic HIB VACCINE Aged Out No longer eligi ble based on patient's age to complete this topic HPV VACCINE Aged Out No longer eligi ble based on patient's age to complete this topic MENINGOCOCCAL VACCINE Aged Out No tala birdie eligible based on patient's age to complete this topic Care Teams Grades 9 Thru 12 Visiting Teacher Relationship Specialty Start Date End Date Rolando Guevara MD [address] [place] [address] PCP - General 12/24/20
--- OUTSIDE RECORDS SUMMARY | 2024-02-08 11:34 | XMS_ITS | Encounter Summary ---
Author Organization [facility] Care Team Providers Care Press Writer Name Role Phone Luis E Pena MD Primary Care Provider [phone] Encounter Details Date Type Department Care Team (Latest Contact Info) Description 11/11/2018 Travel Social History Tobacco Use Types Packs/Day Years Used Date Smoking Tobacco: Never Comments Unknown Sex and Gender Information Value Date Recorded Sex Assigned at Not on file Legal Sex Female 4:51 PM CUSTOMER SUPPORT REPRESENTATIVE Gender Identity Not on file Sexual Orientation Not on file documented as of this encounter Plan of Treatment Not on file documented as of this encounter Visit Diagnoses Not on filedocumented in this encounter Care Teams Press Writer Relationship Specialty Start Date End Date Luis E Pena MD [address] [place] [address] PCP - General Family Medicine 09/29/18 documented as of this encounter
--- OUTSIDE RECORDS SUMMARY | 2024-02-08 11:34 | XMS_ITS | Encounter Summary ---
Author Organization [facility] Address [address] [place] [address] Care Team Providers Care Field Technician Name Role Phone Rolando Guevara MD Primary Care Provider [phone] Encounter Details Date Type Department Care Team (Latest Contact Info) Description 08/06/2022 Travel Social History Tobacco Use Types Packs/Day Years Used Date Smoking Tobacco: Never Smokeless Tobacco: Never Alcohol Use Standard Drinks/Week Comments No 0 (1 standard drink = 0.6 oz pur e alcohol) PHQ-2 Answer Date Recorded PHQ2 TOTAL SCORE 2 08/06/2022 Sex and Gender Information Value Date Recorded Sex Assigned at Not on file Gender Identity Not on file Sexual Orientation Not on file COVID-19 Exposure Response Date Recorded In the last 10 days, have yo u been in contact with someone who was confirmed or suspected to have Coronavirus/COVID-19? No / Unsure 08/06/2022 1:10 PM CDT documented as of this encounter Plan of Treatment Not on file documented as of this encounter Visit Diagnoses Not on filedocumented in this encounter Care Teams Field Technician Relationship Specialty Start Date End Date Rolando Guevara MD [address] [place] [address] PCP - General 12/24/20 documented as of this encounter
--- OUTSIDE RECORDS SUMMARY | 2024-02-08 11:34 | XMS_ITS | Referral Summary ---
Author Organization [facility] Address [address] [place] [address] Care Team Providers Care Ship'S Master Name Role Phone Luis E Pena MD [...] on file Legal Sex Female 4:51 PM RELATIONSHIP MANAGER Gender Identity Not on file Sexual Orientation Not on file Plan of Treatment Not on file Insurance [employer] [facility] [place] [id number] Care Teams Ship'S Master Relationship Specialty Start Date End Date Luis E Pena MD [address] [place] [address] PCP - General Family Medicine 09/29/18
--- OUTSIDE RECORDS SUMMARY | 2024-02-08 11:34 | XMS_ITS | Encounter Summary ---
Author Organization [facility] Address [address] [address] Care Team Providers Care Construction Craft Laborer Name Role Phone Rolando Guevara MD Primary Care Provider [phone] Encounter Details Date Type Department Care Team (Latest Contact Info) Description 11/07/2022 Travel Social History Tobacco Use Types Packs/Day Years Used Date Smoking Tobacco: Never Smokeless Tobacco: Never Alcohol Use Standard Drinks/Week Comments No 0 (1 standard drink = 0.6 oz pur e alcohol) PHQ-2 Answer Date Recorded Patient Health Questionnaire-2 Score 1 11/07/2022 Sex and Gender Information Value Date Recorded Sex Assigned at Not on file Gender Identity Not on file Sexual Orientation Not on file documented as of this encounter Plan of Treatment Not on file documented as of this encounter Visit Diagnoses Not on filedocumented in this encounter Care Teams Construction Craft Laborer Relationship Specialty Start Date End Date Rolando Guevara MD [address] [place] [address] PCP - General 12/24/20 documented as of this encounter
--- OUTSIDE RECORDS SUMMARY | 2024-02-08 11:34 | XMS_ITS | Encounter Summary ---
Author Organization [facility] Address [address] [place] [address] Care Team Providers Care Graphic Manager Name Role Phone Luis E Pena MD Primary Care Provider [phone] Reason for Referral * Injectables (Routine) - Closed Specialty Diagnoses / Procedures Referred By Contac t Referred To Contact Diagnoses De Quervain's syndrome (tenosynovitis) Procedures De Quervain's injection: L extensor compartment 1 Valeriy Taylor MD Phone: tel: fax: [facility] Referral ID Status Reason Start Date Expiration Date Visits Re quested Visits Authorized [id number] Closed 11/11/2018 05/22/2020 1 1 Reason for Visit * Reason Comments Pain Encounter Details Date Type Department Care Team (Late st Contact Info) Description 11/11/2018 1:15 PM CDT Office Visit [facility] Hand Surgery [address] [place] [address] Valeriy Taylor MD [address] [place] [address] [address] [place] [address] De Quervain's syndrome (tenosynovitis) (Primary Dx) Social History Tobacco Use Types Packs/Day Years Used Date Smoking Tobacco: Never Comments Unknown Sex and Gender Information Value Date Recorded Sex Assigned at Not on file Legal Sex Female 4:51 PM LOAD TESTER Gender Identity Not on file Sexual Orientation Not on file documented as of this encounter Progress Notes * Valeriy Taylor MD - 11/11/2018 1:15 PM CDTAssociated Order(s): De Quervain's injection: L extensor compartment 1 Post-Procedure Diagnose(s): De Quervain's syndrome (tenosynovitis) Patient ID: Juanita Cancino is a 63 y.o. female. Visit Date: 11/11/2018 Chief Complaint: Chief Complaint Patient presents with ??? Left Wrist - Pain HPI: The patient is a 63-year-old [id number] female seen for evaluation of left wrist pain. Sheis a patient in the remote past undergoing right carpal tunnel release. She was scheduled for left carpal tunnel but a cancel that. She reports having has some symptoms of carpal tunnel but she now has increasing complaints of radial sided wrist pain. She has written that she has a sharp pain in her wrist area of the left arm more painful insert positions and when pressure is applied. She denies any specific accident or injury. She denies any systemic symptoms. She denies any modifying factors. ROS: Constitutional: Negative for appetite [...] left wrist she has tenderness well localized to the 1st extensor compartment. She has pain with resisted thumb extension and pain with passive ulnar deviation of her wrist with herthumb adducted. X-rays/Imaging: Assessment/Plan Diagnoses and all orders for this visit: De Quervain's syndrome (tenosynovitis) (Primary) Treatment / Plan: I discussed the diagnosis, anatomy, and treatment options of de Quervain stenosing tenosynovitis. Zach illustrated with plastic models and diagrams. I gave her an informational article regarding the condition. I discussed options of splint wear, intrathecal injection, and an operative release. After thorough discussion of recommended she would like to proceed with an injection. I have asked forpost car follow-up in 10 days to 2 weeks to reports response to this intervention. De Quervain's injection: L extensor compartment 1 Date/Time: 11/11/2018 3:29 PM Performed by: Valeriy Taylor MD Authorized by: MD Sudheer Greene Injection: Consent Given by: Patient Site marked: [...] 1 mL lidocaine 10 mg/mL (1 %); 40 mg triamcinolone 40 mg/mL documented in this encounter Plan of Treatment Not on file documented as of this encounter Procedures Procedure Name Priority Date/Time Associated Diagnosis Comments ME INJECTION 1 TENDON SHEATH/LIGAMENT APONEUROSIS Routine 11/11/2018 1:15 PM CDT De Quervain's syndrome (tenosynovitis) documented in this encounter Results * ME INJECTION 1 TENDON SHEATH/LIGAMENT APONEUROSIS (11/11/2018 1:15 PM CDT) Narrative Valeriy Taylor MD - 11/11/2018 1:15 PM CDT Valeriy Taylor MD ? 11/11/2018 ??3:29 PM De Quervain's injection: L extensor compartment 1 Date/Time: 11/11/2018 3:29 PM Performed by: Valeriy Taylor MD Authorized by: MD Sudheer Greene Injection: ??Consent Given by: ??Patient ??Site marked: [...] ??1 mL lidocaine 10 mg/mL (1 %); 40 mg triamcinolone 40 mg/mL us Valeriy Taylor MD IN CLINIC/BEDSIDE ORDERABLES Final Result documented in this encounter Visit Diagnoses Diagnosis De Quervain's syndrome (tenosynovitis)- Primary Radial styloid tenosynovitis documented in this encounter Administered Medications Inactive Administered Medications - up to 3 most recent administrations Medication Order MAR Action Action Date Dose Rate Site lidocaine (XYLOCAINE) 10 mg/mL (1 %) injection 1 mL 1 mL, One-Time Injection, Starting on Sat11/11/18 at 1529, For 1 dose, Indications: Administration of Local AnesthesiaIndications:Administratio n of Local Anesthesia Given 11/11/2018 3:29 PM CDT 1 mL triamcinolone (KENALOG) 40 mg/mL injection 40 mg 40 mg, intra-articular, One-Time Injection, Starting on Sat11/11/18 at 1529, For 1 doseIndications:De Quervain's syndrome (tenosynovitis) Given 11/11/2018 3:29 PM CDT 40 mg documented in this encounter Discontinued Medications Medication Sig Discontinue Reason Start Date End Da te esomeprazole DR (NexIUM) 40 mg capsule TK 1 C PO D Duplicate order 12/26/2012 11/11/2018 documented as of this encounter Historical Medications * This list may reflect changes made after this encounter. venlafaxine XR (EFFEXOR-XR) 75 mg 24 hr capsule TK 1 C PO DAILY WITH BREAKFAST 5 09/17/2018 rosuvastatin (CRESTOR) 5 mg tablet TK 1 T PO D 6 10/27/[address] (NexIUM) 40 mg capsule TK 1 C PO D 3 09/10/2018 aspirin 81 mg enteric coated tablet Take 81 mg by mouth daily esomeprazole DR (NexIUM) 40 mg capsule TK 1 C PO D 12/26/2012 9 added in this encounter Care Teams Graphic Manager Relationship Specialty Start Date End Date Luis E Pena MD [address] [place] [address] PCP - General Family Medicine 09/29/18 documented as of this encounter
--- OUTSIDE RECORDS SUMMARY | 2024-02-08 11:34 | XMS_ITS | Referral Summary ---
Author Organization [facility] Address [address] [place] [address] Care Team Providers Care Non Destructive Testing Supervisor Name Role Phone Rolando Guevara MD Primary Care Provider [phone] Source Comments [facility],non-owned Affiliates and Associated Physician Practices is amultiple site organization consisting of ambulatory clinics and hospital sitesin [place], [place], [place] and [place]. This disclosure is being madepursuant to the Care Everywhere program and may not contain all information available regarding this patient. Last updated 17.[facility] Allergies No known active allergies Medications * [...] T Respiratory Rate 20 01/18/2022 10:40 AM OYSTER CULTIVATOR Oxygen Saturation 97% 08/06/2022 1:12 PM CDT Inhaled Oxygen Concentration - - Weight 68.9 kg (152 lb) 06/26/2023 2:36 PM CDT Height 157.5 cm (5' 2 ) 06/26/2023 2:36 PM CDT Body Mass Index 27.8 06/26/2023 2:36 PM CDT Plan of Treatment Not on file Administered Medications Care Teams Non Destructive Testing Supervisor Relationship Specialty Start Date End Date Rolando Guevara MD [address] [place] [address] PCP - General 12/24/20
== END 2024-02-01 10:30 | disposition home or self-care (01) ==
PROVIDERS: Emergency Provider Nurse Practitioner Family; PCP Family Medicine
DX: J06.9 Acute upper respiratory infection, unspecified (principal); E78.5 Hyperlipidemia, unspecified
CPT/HCPCS: 99213; G0463

== ENCOUNTER 2024-03-24 07:20 | Outpatient (CLI) | payer MEDICARE, SELFPAY ==
--- OUTSIDE RECORDS SUMMARY | 2024-03-24 07:31 | XMS_ITS | Referral Summary ---
Author Organization [facility] Address [address] [place] [address] Care Team Providers Care Security Representative Name Role Phone Rolando Guevara MD Primary Care Provider [phone] Source Comments [facility],non-owned Affiliates and Associated Physician Practices is amultiple site organization consisting of ambulatory clinics and hospital sitesin [place], [place], [place] and [place]. This disclosure is being madepursuant to the Care Everywhere program and may not contain all information available regarding this patient. Last updated 17.[facility] Allergies No known active allergies Medications * [...] 79 06/26/2023 2:36 PM CDT Temperature 37.1 C (98.7 F) 06/26/2023 2:36 PM CDT Respiratory Rate 20 01/18/2022 10:40 AM NAVAL SCIENCE TEACHER Oxygen Saturation 97% 08/06/2022 1:12 PM CDT Inhaled Oxygen Concentration - - Weight 68.9 kg (152 lb) 06/26/2023 2:36 PM CDT Height 157.5 cm (5' 2 ) 06/26/2023 2:36 PM CDT Body Mass Index 27.8 06/26/2023 2:36 PM CDT Plan of Treatment Not on file Administered Medications Care Teams Security Representative Relationship Specialty Start Date End Date Rolando Guevara MD [address] [place] [address] PCP - General 12/24/20
--- OUTSIDE RECORDS SUMMARY | 2024-03-24 07:31 | XMS_ITS | Patient Health Summary ---
Author Organization [facility] Address [address] [place] [address] Care Team Providers Care Rounding Machine Operator Name Role Phone Rolando Guevara MD Primary Care Provider [phone] Note from [facility],non-owned Affiliates and Associated Physician Practices is amultiple site organization consisting of ambulatory clinics and hospital sitesin [place], [place], [place] and [place]. This disclosure is being madepursuant to the Care Everywhere program and may not contain all information available regarding this patient. Last updated 17.[facility] Allergies No known active allergies Medications * [...] CDT Respiratory Rate 20 01/18/2022 10:40 AM BILLING SUPERVISOR Oxygen Saturation 97% 08/06/2022 1:12 PM CDT [...] Unknown 10/08/2018 12:41 PM CDT Reymundo Judd STRATEGIC PLANNER-[facility]OL [facility] - POINT OF CARE ORDERABLES Care Teams Rounding Machine Operator Relationship Specialty Start Date End Date Rolando Guevara MD [address] [place] [address] PCP - General 12/24/20
--- OUTSIDE RECORDS SUMMARY | 2024-03-24 07:31 | XMS_ITS | Clinical Summary ---
Author Organization [facility] Address [address] [place] [address] Care Team Providers Care Bite Block Maker Name Role Phone Rolando Guevara MD Primary Care Provider Source Comments [facility],non-owned Affiliates and Associated Physician Practices is amultiple site organization consisting of ambulatory clinics and hospital sitesin [place], [place], [place] and [place]. This disclosure is being madepursuant to the Care Everywhere program and may not contain all information available regarding this patient. Last updated 17.[facility] Allergies No known active allergies Medications * [...] CDT Respiratory Rate 20 01/18/2022 10:40 AM TALEND DEVELOPER Oxygen Saturation 97% 08/06/2022 1:12 PM CDT [...] 03/27/1975 DTAP/TDAP/TD VACCINES (1 - Tdap) 1976 PNEUMOCOCCAL VACCINE 50+ (1 of 1 - PCV) 2007 ZOSTER VACCINE (1 of 2) 2007 MAMMOGRAM 07/27/2016 07/27/2014 SCREENING FOR DIABETES 10/28/2019 COVID-19 VACCINE (1 - season) 2023 INFLUENZA VACCINE (#1) 2023 DEPRESSION SCREENING 02/12/2024 03/27/2023, 11/07/2022, 08/06/2022, Additional history exists Respiratory Syncytial Virus (RSV) Vaccine Pt: or over 60 yrs (1 - 1-dose 75+ series) 2032 HEPATITIS B VACCINE Aged Out No longe r eligible based on patient's age to complete this topic HIB VACCINE Aged Out No longer eligi ble based on patient's age to complete this topic HPV VACCINE Aged Out No longer eligi ble based on patient's age to complete this topic MENINGOCOCCAL (Group B) VACCINE Aged Out No longer eligible based on patient's age to complete this topic MENINGOCOCCAL VACCINE Aged Out No tala birdie eligible based on patient's age to complete this topic Care Teams Bite Block Maker Relationship Specialty Start Date End Date Rolando Guevara MD [address] [place] [address] PCP - General 12/24/20
--- OUTSIDE RECORDS SUMMARY | 2024-03-24 07:31 | XMS_ITS | Clinical Summary ---
Author Organization [facility] [place] Address [facility] [place] [address] Care Team Providers Care Warehouse Traffic Supervisor Name Role Phone Luis E Pena [...] on file Legal Sex Female 4:51 PM CANDY CUTTER HAND Gender Identity Not on file Sexual Orientation Not on file Obstetrics History Plan of Treatment Not on file Insurance [employer] [facility] [address] Care Teams Warehouse Traffic Supervisor Relationship Specialty Start Date End Date Luis E Pena MD [address] [facility] [place] [address] PCP - General Family Medicine 09/29/18
--- OUTSIDE RECORDS SUMMARY | 2024-03-24 07:31 | XMS_ITS | Referral Summary ---
Author Organization [facility] Address [address] [place] [address] Care Team Providers Care Director Corporate Sales Name Role Phone Luis E Pena MD [...] on file Legal Sex Female 4:51 PM ANESTHESIA ASSOCIATE Gender Identity Not on file Sexual Orientation Not on file Plan of Treatment Not on file Insurance [facility] [place] [address] Care Teams Director Corporate Sales Relationship Specialty Start Date End Date Luis E Pena MD [address] [place] [address] PCP - General Family Medicine 09/29/18
[2024-03-24 08:09] LABS: Hematocrit 41.5 % (37.0-47.0); Hemoglobin 13.9 g/dL (12.0-15.0); Mean Corpuscular HGB Conc 33.5 g/dl (32-36); Mean Corpuscular Hemoglobin 30.9 pg (26-34); Mean Corpuscular Volume 92.2 fl (80-100); Mean Platelet Volume 8.9 fl (7.4-10.4); Platelet Count Result 302 k/mm3 (150-375); Red Cell Distribution Width 12.6 % (11.5-14.5); White Blood Count 4.8 K/mm3 (4.5-10.0)
[2024-03-24 08:23] LABS: Add Urine Microscopic? YES; Appearance Urine Clear (Clear); Bacteria Urine None Seen /hpf; Bilirubin Urine Negative (Negative); Blood Urine Negative (Negative); Color Urine Yellow (Yellow); Glucose Urine UA Negative (Negative); Ketones Urine Negative (Negative); Leukocyte Esterase Ur Trace LEU/UL (Negative); Nitrate Urine Negative (Negative); Non Pathogenic Casts 0-2; Protein Urine Negative (Negative); RBC Urine 0-2 /hpf (0-2); Specific Grav Ur 1.016 (1.001-1.035); Squamous Epithelial Cell Urine None Seen /hpf (Few); Urobilinogen Urine 0.2 mg/dL (<2.0); WBC Urine 0-5 /hpf (0-3); pH Urine 7.5 (5.0-9.0)
[2024-03-24 08:24] LABS: Alanine Aminotransferase 18 U/L (6-35); Albumin Level 4.2 g/dL (3.5-5.1); Alkaline Phosphatase 55 U/L (38-126); Anion Gap 6 mmol/L (4-12); Aspartate Amino Transferase 27 U/L (14-36); Bilirubin,Total 0.5 mg/dL (0.2-1.3); Blood Urea Nitrogen 17 mg/dL (7-17); Calcium 9.5 mg/dL (8.4-10.2); Carbon Dioxide 30 mmol/L (22-30); Chloride 103 mmol/L (98-107); Cholesterol 185 mg/dL (0-200); Estimated Glomerular Filt Rate 54; Glucose 96 mg/dL (65-110); HDL Direct 89 mg/dL; Potassium 4.8 mmol/L (3.4-5.0); Sodium 139 mmol/L (137-145); Triglycerides 69 mg/dL (<150)
[2024-03-24 08:36] LABS: LDL Cholesterol Direct 84 mg/dL
[2024-03-24 08:43] LABS: Hemoglobin A1C 5.7 % (<5.7)
== END 2024-03-24 07:21 | disposition home or self-care (01) ==
PROVIDERS: PCP Family Medicine; Visit Provider Family Medicine
DX: E78.5 Hyperlipidemia, unspecified (principal); R73.01 Impaired fasting glucose; R53.83 Other fatigue; Z00.00 Encounter for general adult medical examination without abnormal findings
CPT/HCPCS: 36415; 80053; 80061; 81001; 83036; 84443; 85027

== ENCOUNTER 2024-04-07 16:38 | Emergency (ER) | payer MEDICARE, SELFPAY ==
--- NOTE | ~2024-04-07 | XR_ITS ---
EXAM: XR tibia fibula LT 2V DATE: 04/07/2024 19:32 HISTORY: proximal tib fib pain . COMPARISON: X-ray ankle, same date. FINDINGS: Normal mineralization. Redemonstration of the posteriorly and laterally displaced trimalle olar ankle fracture. Oblique fracture of the left fibular head with 3 mm medial displacement. No lyti c or blastic lesion. Knee joint is aligned. No erosion or periosteal change. Ankle soft tissue swelli ng. IMPRESSION: Mildly displaced left fibular head fracture. Trimalleolar ankle fracture with posterior a nd lateral displacement. Reviewed, dictated and finalized at location K. E MANAGEMENT TRAINEE IMPRESSION: Mildly displaced left fibular head fracture. Trimalleolar ankle fra cture with posterior and lateral displacement.
--- NOTE | ~2024-04-07 | XR_ITS ---
EXAM: XR ankle LT min 3V DATE: 04/07/2024 17:21 HISTORY: fall, twisted left ankle . COMPARISON: None available. FINDINGS: Normal mineralization. Transverse fracture of the medial malleolus with distraction. Obliq ue distal left fibular fracture at the level of the joint line, with lateral angulation and posterior displacement. Posterior malleolar fracture with posterolateral displacement. The talus and a portion of the posterior tibial plafond are laterally and posteriorly displaced by one half shaft width. No lytic or blastic lesion. Joint spaces are maintained. No erosion or periosteal change. Soft tissue sw elling about the ankle. IMPRESSION: Trimalleolar left ankle fracture with posterolateral displacement. Reviewed, dictated and finalized at location K. NG PRESSER
[2024-04-07 17:06] VITALS: BP 117/50; PULSE 75; RESP 18; TEMP 36.8; O2SAT 99
--- NOTE | 2024-04-07 17:08 | ED.LOWEXIN ---
HPI - Extremity Injury (Lower) General Chief Complaint: Extremity Injury, Lower <Rik Salas PA-C - Last Filed: 04/07/24 17:09> Stated Complaint: fall, L ankle injury <Rik Salas PA-C - Last Filed: 04/07/24 17:09> Time Seen by Provider: 04/07/24 18:58 <Rik Salas PA-C - Last Filed: 04/07/24 17:09> Focused HPI: This is a 69-year-old female who presents to the ED for chief complaint of left ankle injury that occurred just prior to arrival. Patient states that she was doing yd work when her foot slipped off of a break. She was at ground level when this happened. Reports that the ankle twisted and felt like it inverted. States she was unable to bear weight. Denies any further sites of pain or injury. GENERAL: Well-appearing, well-nourished, and in no acute distress. HEAD: Normocephalic, atraumatic. CHEST: Clear to auscultation. No respiratory distress. HEART: Regular rate and rhythm. MSK: Tenderness throughout the left ankle joint. Left ankle joint has effusion present. No tenderness throughout the left foot or left knee/more proximal left tib-fib. NEURO: Alert and oriented x3. Patient screened in triage and initial orders placed. Additional care and disposition to be based upon diagnostic testing and treatment. <Rik Salas PA-C - Last Filed: 04/07/24 17:09> Source: patient <Rik Salas PA-C - Last Filed: 04/07/24 17:09> Mode of arrival: ambulatory <Rik Salas PA-C - Last Filed: 04/07/24 17:09> Limitations: no limitations <Rik Salas PA-C - Last Filed: 04/07/24 17:09> History of Present Illness HPI Narrative: I agree with the above HPI <Nathan Rice MD - Last Filed: 04/08/24 00:05> Related Data Home Medications: Home Medications ?Medication ?Instructions ?Recorded ?Confirmed ?Last Taken ?Type aspirin 81 mg tablet,delayed 81 mg PO DAILY 09/26/20 12/11/23 Unknown History release venlafaxine 75 mg tablet,extended 225 mg PO DAILY 09/26/20 12/11/23 Unknown History release 24 hr <Rik Salas PA-C - Last Filed: 04/07/24 17:09> Allergies/Adverse Reactions: Allergies Allergy/AdvReac Type Severity Reaction Status Date / Time No Known Allergies Allergy Verified 02/01/24 10:00 <Rik Salas PA-C - Last Filed: 04/07/24 17:09> Review of Systems Review of Systems: All systems reviewed & are unremarkable except as noted in HPI and below <Nathan Rice MD - Last Filed: 04/08/24 00:05> [facility] Past Medical History Medical History: Medical History Overweight (BMI 25.0-29.9) Depression GERD (gastroesophageal reflux disease) HLD (hyperlipidemia) <Rik Salas PA-C - Last Filed: 04/07/24 17:09> Surgical History Surgical History: Surgical History History of eye surgery History of rectal surgery History of carpal tunnel release History of section History of appendectomy <Rik Salas PA-C - Last Filed: 04/07/24 17:09> Family History Family History: Family History Mother Diabetes mellitus Sibling Cerebrovascular accident <Rik Salas PA-C - Last Filed: 04/07/24 17:09> Social History Social History: Social History Smoking status: Never smoker Second hand tobacco smoke exposure: No Alcohol intake: current Alcohol use details: rarely Substance use: never Substance use type: does not use Living arrangements: with family Occupation/Education: retired Gender identity (if verbalized by the patient): Female Sexual Orientation (if Verbalized by the Patient): Straight or Heterosexual Spiritual care concerns: No <Rik Salas PA-C - Last Filed: 04/07/24 17:09> Exam Narrative: APPEARANCE: No significant distress at rest, well-appearing HEAD: normocephalic, atraumatic. EYES: PERRLA/EOMI, conjunctivae clear. NOSE: Normal no drainage EARS:TMS clear with good light reflex. THROAT: Pharynx clear, no exudate. NECK: Supple. No adenopathy, no masses. RESPIRATORY: Airway patent, respirations nonlabored. Clear to auscultation bilaterally, no rales, rhonchi, wheezing. CARDIOVASCULAR: Regular rate and rhythm without murmurs rubs or gallops. ABDOMINAL: Soft, nontender, nondistended, normal bowel sounds MUSCULOSKELETAL: Left ankle swelling and tenderness to left proximal tib-fib. Neurovascularly intact with strong distal pulses NEURO: Alert. Cranial nerves II through XII intact. Good gait. Good coordination SKIN: Warm, dry. Normal Color <Nathan Rice MD - Last Filed: 04/08/24 00:05> Course Vital Signs Vital signs: Vital Signs Temperature 98.2 F 04/07/24 17:06 Pulse Rate 75 04/07/24 17:06 Respiratory Rate 18 04/07/24 17:06 Blood Pressure 117/50 L 04/07/24 17:06 Pulse Oximetry 99 04/07/24 17:06 Oxygen Delivery Room Air 04/07/24 17:06 Temperature 98.2 F 04/07/24 17:06 Pulse Rate 92 04/07/24 20:57 Respiratory Rate 18 04/07/24 20:57 Blood Pressure 122/82 04/07/24 20:57 Pulse Oximetry 100 04/07/24 20:57 Oxygen Delivery Room Air 04/07/24 17:06 <Rik Salas PA-C - Last Filed: 04/07/24 17:09> Vital Signs Temperature 98.2 F 04/07/24 17:06 Pulse Rate 75 04/07/24 17:06 Respiratory Rate 18 04/07/24 17:06 Blood Pressure 117/50 L 04/07/24 17:06 Pulse Oximetry 99 04/07/24 17:06 Oxygen Delivery Room Air 04/07/24 17:06 Temperature 98.2 F 04/07/24 17:06 Pulse Rate 92 04/07/24 20:57 Respiratory Rate 18 04/07/24 20:57 Blood Pressure 122/82 04/07/24 20:57 Pulse Oximetry 100 04/07/24 20:57 Oxygen Delivery Room Air 04/07/24 17:06 <Nathan Rice MD - Last Filed: 04/08/24 00:05> MDM - Extremity Injury (Lower) MDM Narrative Medical decision making narrative: 69-year-old female present to the emergency department for evaluation after having a ground level fall. X-ray was positive for a trimalleolar fracture of the left ankle. Patient did have tenderness to proximal tib-fib. Patient did receive IV Versed IV Dilaudid and ankle was placed in a posterior splint with a stirrup. Ankle was placed an a more anatomic position with splint placement. Patient is requesting discharge home. Patient was neurovascularly intact before and after splint placement. Patient was advised that she will most likely need surgical repair of this ankle. Patient will be provided medication for pain control at home. Patient wishes to follow-up with Dr. Jaeger. Patient family were educated on reasons to return to the emergency department. All questions were addressed patient was well-appearing at time of discharge. <Nathan Rice MD - Last Filed: 04/08/24 00:05> Differential Diagnosis Differential diagnosis: Likely ankle fracture and other (Proximal tib-fib fracture, ankle dislocation) <Nathan Rice MD - Last Filed: 04/08/24 00:05> Imaging Data Radiologist's impression: Impressions Ankle X-Ray 04/07/24 17:22 IMPRESSION: Trimalleolar left ankle fracture with posterolateral displacement. Tibia/Fibula X-Ray 04/07/24 19:59 IMPRESSION: Mildly displaced left fibular head fracture. Trimalleolar ankle fracture with posterior and lateral displacement. <Nathan Rice MD - Last Filed: 04/08/24 00:05> Discharge Plan Discharge Clinical Impression: Closed trimalleolar fracture <Rik Salas PA-C - Last Filed: 04/07/24 17:09> Patient Disposition: Home, Self-Care <Rik Salas PA-C - Last Filed: 04/07/24 17:09> Condition: Stable <Rik Salas PA-C - Last Filed: 04/07/24 17:09> Instructions: Antibiotic Form, Crutch Instructions (ED), Splint Care (ED), Ankle Stirrup Splint (ED) <Rik Salas PA-C - Last Filed: 04/07/24 17:09> Additional Instructions: Ibuprofen for pain control. [place] as needed for additional pain control. Flexeril for muscle spasm. Splint care as directed. Crutches for nonweightbearing. Have close follow-up with Orthopedics. If you have any worsening symptoms or uncontrolled pain then please call or return to the emergency department. <Rik Salas PA-C - Last Filed: 04/07/24 17:09> Patient Language: Ukrainian <Rik Salas PA-C - Last Filed: 04/07/24 17:09> Prescriptions: New hydrocodone-acetaminophen 5-325 mg tablet 1 tablet PO Q12H PRN (Reason: pain) Qty: 14 0RF cyclobenzaprine 10 mg tablet 10 mg PO BID PRN (Reason: muscle spasm) Qty: 14 0RF No Action azithromycin [Zithromax Z-Kristian] 250 mg tablet See Rx Instructions .ROUTE .COMPLEX Qty: 6 0RF Rx Instructions: For 250 mg dose pack: take 500 mg today (day 1), then 250 mg for 4 days (days 2-5) venlafaxine 75 mg tablet extended release 24hr 225 mg PO DAILY aspirin 81 mg tablet,delayed release (DR/EC) 81 mg PO DAILY esomeprazole magnesium [Nexium] 40 mg capsule,delayed release(DR/EC) 40 mg PO DAILY Qty: 90 1RF rosuvastatin 5 mg tablet See Rx Instructions .ROUTE .COMPLEX Qty: 90 3RF Dose Instruction: TAKE 1 TABLET BY MOUTH DAILY Rx Instructions: TAKE 1 TABLET BY MOUTH DAILY <Rik Salas PA-C - Last Filed: 04/07/24 17:09> Follow-up/Referrals: Rolando Guevara MD [Primary Care Provider] - Ferny Jaeger MD [Physician] - <Rik Salas PA-C - Last Filed: 04/07/24 17:09>
--- OUTSIDE RECORDS SUMMARY | 2024-04-07 18:47 | XMS_ITS | Referral Summary ---
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
--- OUTSIDE RECORDS SUMMARY | 2024-04-07 18:47 | XMS_ITS | Patient Health Summary ---
Author Organization [facility] Address [address] [address] Care Team Providers Care Spinning Lathe Operator Name Role Phone Rolando Guevraa MD Primary Care Provider [phone] Note from [facility],non-owned Affiliates and Associated Physician Practices is amultiple site organization consisting of ambulatory clinics and hospital sitesin [place], [place], [place] and [place]. This disclosure is being madepursuant to the Care Everywhere program and may not contain all information available regarding this patient. Last updated 17.[facility] Allergies No known active allergies Medications * [...] CDT Respiratory Rate 20 01/18/2022 10:40 AM ENGINEER FIRST ASSISTANT Oxygen Saturation 97% 08/06/2022 1:12 PM CDT [...] Unknown 10/08/2018 12:41 PM CDT Reymundo Judd RETAIL STORE CLERK-APARTMENT HOUSE MANAGER LAB - POINT OF CARE ORDERABLES Care Teams Spinning Lathe Operator Relationship Specialty Start Date End Date Rolando Guevara MD [address] [place] [address] PCP - General 12/24/20
--- OUTSIDE RECORDS SUMMARY | 2024-04-07 18:47 | XMS_ITS | Referral Summary ---
Author Organization [facility] Address [address] [place] [address] Care Team Providers Care Licensed Mental Health Professional Name Role Phone Rolando Guevara MD Primary Care Provider [phone] Source Comments [facility],non-owned Affiliates and Associated Physician Practices is amultiple site organization consisting of ambulatory clinics and hospital sitesin [place], [place], [place] and [place]. This disclosure is being madepursuant to the Care Everywhere program and may not contain all information available regarding this patient. Last updated 17.[facility] Allergies No known active allergies Medications * [...] CDT Respiratory Rate 20 01/18/2022 10:40 AM POLITICAL REPORTER Oxygen Saturation 97% 08/06/2022 1:12 PM CDT Inhaled Oxygen Concentration - - Weight 68.9 kg (152 lb) 06/26/2023 2:36 PM CDT Height 157.5 cm (5' 2 ) 06/26/2023 2:36 PM CDT Body Mass Index 27.8 06/26/2023 2:36 PM CDT Plan of Treatment Not on file Administered Medications Care Teams Licensed Mental Health Professional Relationship Specialty Start Date End Date Rolando Guevara MD [address] [place] [address] PCP - General 12/24/20
--- OUTSIDE RECORDS SUMMARY | 2024-04-07 18:47 | XMS_ITS | Clinical Summary ---
Author Organization [facility] Address [address] [facility] [place] [address] Care Team Providers Care Recovery Manager Name Role Phone Rolando Guevara MD Primary Care Provider [phone] Source Comments [facility],non-owned Affiliates and Associated Physician Practices is amultiple site organization consisting of ambulatory clinics and hospital sitesin [place], [place], [place] and [place]. This disclosure is being madepursuant to the Care Everywhere program and may not contain all information available regarding this patient. Last updated 17.[facility] Allergies No known active allergies Medications * [...] CDT Respiratory Rate 20 01/18/2022 10:40 AM STATE INSPECTOR Oxygen Saturation 97% 08/06/2022 1:12 PM CDT [...] 02/12/2024 03/27/2023, 11/07/2022, 08/06/2022, Additional history exists MEDICARE AWV CALENDAR YEAR 2024 Respiratory Syncytial Virus (RSV) Vaccine Pt: or [...] age to complete this topic Care Teams Recovery Manager Relationship Specialty Start Date End Date Rolando Guevara MD [address] [place] [address] PCP - General 12/24/20
--- OUTSIDE RECORDS SUMMARY | 2024-04-07 18:47 | XMS_ITS | Clinical Summary ---
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
--- OUTSIDE RECORDS SUMMARY | 2024-04-07 19:32 | XMS_ITS | Referral Summary ---
Author Organization [facility] Address [address] [place] [address] Care Team Providers Care Zinc Plate Cutter Name Role Phone Rolando Guevara MD Primary Care Provider [phone] Source Comments [facility],non-owned Affiliates and Associated Physician Practices is amultiple site organization consisting of ambulatory clinics and hospital sitesin [place], [place], [place] and [place]. This disclosure is being madepursuant to the Care Everywhere program and may not contain all information available regarding this patient. Last updated 17.[facility] Allergies No known active allergies Medications * [...] CDT Respiratory Rate 20 01/18/2022 10:40 AM CARTRIDGE GAUGER Oxygen Saturation 97% 08/06/2022 1:12 PM CDT Inhaled Oxygen Concentration - - Weight 68.9 kg (152 lb) 06/26/2023 2:36 PM CDT Height 157.5 cm (5' 2 ) 06/26/2023 2:36 PM CDT Body Mass Index 27.8 06/26/2023 2:36 PM CDT Plan of Treatment Not on file Administered Medications Care Teams Zinc Plate Cutter Relationship Specialty Start Date End Date Rolando Guevara MD [address] [place] [address] PCP - General 12/24/20
--- OUTSIDE RECORDS SUMMARY | 2024-04-07 19:32 | XMS_ITS | Clinical Summary ---
Author Organization [facility] [place] Address [facility] [place] [address] Care Team Providers Care Block Out Machine Operator Name Role Phone LuisE Pena MD Primary Care Provider Allergies No [...] on file Legal Sex Female 4:51 PM AGRICULTURAL SYSTEMS SPECIALIST Gender Identity Not on file Sexual Orientation Not on file Obstetrics History Plan of Treatment Not on file Insurance [facility] [place] [id number] Care Teams Block Out Machine Operator Relationship Specialty Start Date End Date Luis E Pena MD [address] [facility] [place] [id number] PCP - General Family Medicine 09/29/18
--- OUTSIDE RECORDS SUMMARY | 2024-04-07 19:32 | XMS_ITS | Clinical Summary ---
Author Organization [facility] Address [address] [place] [address] Care Team Providers Care Die Cutter Apprentice Name Role Phone Rolando Guevara MD Primary Care Provider [phone] Source Comments [facility],non-owned Affiliates and Associated Physician Practices is amultiple site organization consisting of ambulatory clinics and hospital sitesin [place], [place], [place] and [place]. This disclosure is being madepursuant to the Care Everywhere program and may not contain all information available regarding this patient. Last updated 17.[facility] Allergies No known active allergies Medications * [...] CDT Respiratory Rate 20 01/18/2022 10:40 AM COMPUTER TERMINAL OPERATOR Oxygen Saturation 97% 08/06/2022 1:12 PM CDT [...] age to complete this topic Care Teams Die Cutter Apprentice Relationship Specialty Start Date End Date Rolando Guevara MD [address] [place] [address] PCP - General 12/24/20
--- OUTSIDE RECORDS SUMMARY | 2024-04-07 19:32 | XMS_ITS | Patient Health Summary ---
Author Organization [facility] Address [address] [facility] [facility] [place] [address] Care Team Providers Care Die Cast Operator Name Role Phone Rolando Guevara MD Primary Care Provider [phone] Note from [facility],non-owned Affiliates and Associated Physician Practices is amultiple site organization consisting of ambulatory clinics and hospital sitesin [place], [place], [place] and [place]. This disclosure is being madepursuant to the Care Everywhere program and may not contain all information available regarding this patient. Last updated 17.[facility] Allergies No known active [...] CDT Respiratory Rate 20 01/18/2022 10:40 AM DRAW BENCH OPERATOR Oxygen Saturation 97% 08/06/2022 1:12 PM [...] Unknown 10/08/2018 12:41 PM CDT Reymundo Judd CRUDE OIL DRIVER-INSIDE SALES TRAINER LAB - POINT OF CARE ORDERABLES Care Teams Die Cast Operator Relationship Specialty Start Date End Date Rolando Guevara MD [address] [place] [address] PCP - General 12/24/20
--- OUTSIDE RECORDS SUMMARY | 2024-04-07 19:32 | XMS_ITS | Referral Summary ---
Author Organization [facility] Address [address] [place] [address] Care Team Providers Care Head Of Human Resources Name Role Phone Luis E Pena MD Primary Care Provider [phone] Allergies No known active allergies Medications aspirin [...] on file Legal Sex Female 4:51 PM MAKEUP SALES CONSULTANT Gender Identity Not on file Sexual Orientation Not on file Plan of Treatment Not on file Insurance [employer] [facility] [place] [id number] Care Teams Head Of Human Resources Relationship Specialty Start Date End Date Luis E Pena MD [address] [place] [address] PCP - General Family Medicine 09/29/18
[2024-04-07] MEDS: HYDROcodone/acetaminophen (*CRX) 7.5-325 MG TABLET 1 TAB PO (19:43)
[2024-04-07] MEDS: CYCLOBENZAPRINE HCL 10 MG TABLET PO (19:43)
[2024-04-07] MEDS: MIDAZOLAM HCL (*CRX) 2 MG/2 ML VIAL 1 MG IV PUSH (20:16)
[2024-04-07] MEDS: ONDANSETRON INJ 4 MG/2 ML VIAL IV PUSH (20:18)
[2024-04-07] MEDS: HYDROmorphone HCL INJ (*CRX) 1 MG/ML SYR IV PUSH (20:18)
[2024-04-07 20:57] VITALS: BP 122/82; PULSE 92; RESP 18; O2SAT 100
== END 2024-04-07 20:59 | disposition home or self-care (01) ==
PROVIDERS: Emergency Provider Emergency Medicine; PCP Family Medicine
DX: S82.852A Displaced trimalleolar fracture of left lower leg, initial encounter for closed fracture (principal); X58.XXXA Exposure to other specified factors, initial encounter; K21.9 Gastro-esophageal reflux disease without esophagitis; E78.5 Hyperlipidemia, unspecified
CPT/HCPCS: 73590; 73610; 96374; 96375; 99284; A9270; J1171; J2250; J2405

== ENCOUNTER 2024-04-08 14:55 | Inpatient (IN) | payer MEDICARE, SELFPAY ==
[2024-04-08 12:16] VITALS: BMI 29.6
--- NOTE | 2024-04-08 12:16 | ADMGEN ---
This patient, Juanita Cancino, was admitted to Medical Room 256-. Patient/family oriented to hospital policies and general routines including ID bracelet, bed and alarms, visiting hours, pain management, procedures, bathroom and other care routines, personal items, smoking policy, room service/diet, and visiting hours. Information on how to activate the Rapid Response Team has been discussed. Patient/Family are encouraged to report perceived risks to care and to ask questions if they do not understand what they are told or what they should do.
--- OUTSIDE RECORDS SUMMARY | 2024-04-08 13:50 | XMS_ITS | Referral Summary ---
Author Organization [facility] [place] [facility] Address [address] [place] [address] Care Team Providers Care Machine Baster Name Role Phone Luis E Pena MD [...] on file Legal Sex Female 4:51 PM SPEECH/LANGUAGE THERAPIST Gender Identity Not on file Sexual Orientation Not on file Plan of Treatment Not on file Insurance [employer] [facility] [place] [id number] Care Teams Machine Baster Relationship Specialty Start Date End Date Luis E Pena MD [address] [place] [address] PCP - General Family Medicine 09/29/18
--- OUTSIDE RECORDS SUMMARY | 2024-04-08 13:50 | XMS_ITS | Clinical Summary ---
Author Organization [facility] Address [address] [facility] [place] [address] Care Team Providers Care Escapement Maker Name Role Phone Rolando Guevara MD Primary Care Provider [phone] Source Comments [facility],non-owned Affiliates and Associated Physician Practices is amultiple site organization consisting of ambulatory clinics and hospital sitesin [place], [place], [place] and [place]. This disclosure is being madepursuant to the Care Everywhere program and may not contain all information available regarding this patient. Last updated 17.[facility] Allergies No known active allergies Medications * [...] CDT Respiratory Rate 20 01/18/2022 10:40 AM KEY CUTTER Oxygen Saturation 97% 08/06/2022 1:12 PM CDT [...] age to complete this topic Care Teams Escapement Maker Relationship Specialty Start Date End Date Rolando Guevara MD [address] [place] [address] PCP - General 12/24/20
--- OUTSIDE RECORDS SUMMARY | 2024-04-08 13:50 | XMS_ITS | Referral Summary ---
Author Organization [facility] Address [address] [place] [address] Care Team Providers Care Radiotelephone Technical Operator Name Role Phone Rolando Guevara MD Primary Care Provider [phone] Source Comments [facility],non-owned Affiliates and Associated Physician Practices is amultiple site organization consisting of ambulatory clinics and hospital sitesin [place], [place], [place] and [place]. This disclosure is being madepursuant to the Care Everywhere program and may not contain all information available regarding this patient. Last updated 17.[facility] Allergies No known active allergies Medications * [...] CDT Respiratory Rate 20 01/18/2022 10:40 AM FAITH DOCTOR Oxygen Saturation 97% 08/06/2022 1:12 PM CDT Inhaled Oxygen Concentration - - Weight 68.9 kg (152 lb) 06/26/2023 2:36 PM CDT Height 157.5 cm (5' 2 ) 06/26/2023 2:36 PM CDT Body Mass Index 27.8 06/26/2023 2:36 PM CDT Plan of Treatment Not on file Administered Medications Care Teams Radiotelephone Technical Operator Relationship Specialty Start Date End Date Rolando Guevara MD [address] [place] [address] PCP - General 12/24/20
--- OUTSIDE RECORDS SUMMARY | 2024-04-08 13:50 | XMS_ITS | Clinical Summary ---
Author Organization [facility] [place] Address 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 [place] [address] PCP - General Family Medicine 09/29/18
--- OUTSIDE RECORDS SUMMARY | 2024-04-08 13:50 | XMS_ITS | Patient Health Summary ---
Author Organization [facility] Address [address] [facility] [place] [address] Care Team Providers Care Lead Pony Rider Name Role Phone Rolando Guevara MD Primary Care Provider [phone] Note from [facility],non-owned Affiliates and Associated Physician Practices is amultiple site organization consisting of ambulatory clinics and hospital sitesin [place], [place], [place] and [place]. This disclosure is being madepursuant to the Care Everywhere program and may not contain all information available regarding this patient. Last updated 17.[facility] Allergies No known active allergies [...] CDT Respiratory Rate 20 01/18/2022 10:40 AM MANAGEMENT TRAINEE PROGRAM STORES Oxygen Saturation 97% 08/06/2022 1:12 PM CDT [...] Unknown 10/08/2018 12:41 PM CDT Reymundo Judd PALLIATIVE CARE NURSE PRACTITIONER-ENAMEL MACHINE OPERATOR LAB - POINT OF CARE ORDERABLES Care Teams Lead Pony Rider Relationship Specialty Start Date End Date Rolando Guevara MD [address] [place] [address] PCP - General 12/24/20
[2024-04-08 14:00] VITALS: BP 124/72; PULSE 87; RESP 18; TEMP 36.6; O2SAT 98
--- NOTE | 2024-04-08 15:01 | P.HP_ITS ---
H&P: HPI History of Present Illness Date/Time: 04/08/24 15:01 Chief Complaint: left ankle fracture Narrative: 69-year-old woman who fell outside of her home yesterday and sustained a left ankle fracture dislocation. She was seen in the emergency room and splinted. She has had severe pain in left ankle and left leg. She was unable to sleep. She denies numbness or tingling. New radiographs note persistent subluxation of the ankle joint. Patient admitted for further care. Review of Systems Constitutional: Constitutional: Denies fever(s) Eyes: Eyes: Denies blurry vision ENT: Reports Normal hearing present Cardiovascular: Cardiovascular: Denies chest pain and Denies dyspnea Respiratory: Respiratory: Denies dyspnea and Denies wheezing Gastrointestinal: Gastrointestinal: Denies abdominal pain Genitourinary: Genitourinary: Denies urinary urgency Musculoskeletal: Musculoskeletal: Reports as per HPI and Denies numbness Integumentary/Breasts: Skin/Breast: Denies changing lesions and Denies sores Neurologic: Reports Normal hearing present, Denies behavioral changes, Denies confusion, Denies numbness and Denies convulsions Psychiatric: Psychiatric: Denies behavioral changes, Denies confusion and Denies hallucinations Endocrine: Endocrine: Denies heat intolerance Hematologic/Lymphatic: Hematologic/Lymphatic: Denies easy bleeding Allergic/Immunologic: Allergic/Immunologic: Denies wheezing PMFSH Past Medical History Medical History Acute disruption of syndesmosis of ankle joint Overweight (BMI 25.0-29.9) Depression GERD (gastroesophageal reflux disease) HLD (hyperlipidemia) Surgical History Surgical History History of eye surgery History of rectal surgery History of carpal tunnel release History of section History of appendectomy Family History Family History Mother Diabetes mellitus Sibling Cerebrovascular accident Unknown Breast cancer Kidney disorder Arthritis Social History Social History Social History: caffeine use Smoking status: Never smoker Second hand tobacco smoke exposure: No Alcohol intake: never Alcohol use details: rarely Substance use: never Substance use type: does not use Do You Feel Safe in your Home?: Yes Lack of Transportation: No Lack of Food: Never True Current Housing: I Have Housing Concerned About Future Housing: No Difficulty Paying Gas/Electric Bills: No Difficulty Paying for Meds: No Currently Unemployed: No Education: Trade/Vocational Certificate Difficulty w/ Childcare or Family Care: No Living arrangements: with family Occupation/Education: retired Gender identity (if verbalized by the patient): Female Sexual Orientation (if Verbalized by the Patient): Straight or Heterosexual Spiritual care concerns: No Meds Home Medications and Allergies Home Medications ?Medication ?Instructions ?Recorded ?Confirmed ?Type aspirin 81 mg tablet,delayed 81 mg PO DAILY 09/26/20 04/08/24 History release venlafaxine 75 mg tablet,extended 225 mg PO DAILY 09/26/20 04/08/24 History release 24 hr esomeprazole magnesium 40 mg 40 mg PO DAILY #90 caps 08/30/23 04/08/24 Rx capsule,delayed release (Nexium) rosuvastatin 5 mg tablet See Rx Instructions .Route 11/21/23 04/08/24 Rx .COMPLEX #90 tabs cyclobenzaprine 10 mg tablet 10 mg PO BID PRN muscle spasm #14 04/07/24 04/08/24 Rx tabs hydrocodone 5 mg-acetaminophen 325 1 tablet PO Q12H PRN pain #14 tabs 04/07/24 04/08/24 Rx mg tablet Allergies Allergy/AdvReac Type Severity Reaction Status Date / Time No Known Allergies Allergy Verified 04/08/24 10:51 Exam Const: General: No confusion Orientation/consciousness: No confusion HENMT: Head: normal to inspection, normocephalic and atraumatic Neck: Neck: supple and nontender Chest: Chest palpation & inspection: normal inspection of the chest Resp: Effort & Inspection: normal respiratory effort and no audible wheezes Cardio: Rate: regular rate : General: Yes deferred Skin: General skin exam: no rashes or lesions noted Neuro: General: No confusion Extrem: General: capillary refill normal Right upper extremity: normal to inspection Left upper extremity: normal to inspection Right lower ext remity: normal to inspection and hip/thigh Details: normal to inspection Left lower extremity: hip/thigh Details: normal to inspection, knee Details: normal to inspection and knee ligament exam normal Details: anterior drawer test normal, valgus stress test normal, varus stress test normal and Capri's test normal, ankle (no calf tenderness) Details: abnormal to inspection ( Obvious swelling at the ankle joint), tenderness ( lateral malleolus), swelling (moderate lateral ankle), abnormal ROM Details: pain with active ROM Details: with plantar flexion and with dorsiflexion and with range as follows ( limited secondary to injury), crepitus Details: at the lateral malleolus and other ( good capillary refill in toes, 2+ DP pulse) and foot Details: normal capillary refill, toes with normal ROM, vascular exam Details: dorsalis pedis pulse present and motor-sensory exam Psych: Affect: normal affect Assessment and Plan Assessment and plan (1) Closed trimalleolar fracture: Qualifiers: Encounter type: initial encounter Laterality: left Qualified Code(s): S82.852A - Displaced trimalleolar fracture of left lower leg, initial encounter for closed fracture Code(s): S82.853A - Displaced trimalleolar fracture of unspecified lower leg, initial encounter for closed fracture Status: Acute Assessment and Plan: New patient evaluation for chief complaint Left ankle fracture. History, physical exam and radiographs reviewed with the patient. Severe pain left ankle. Unable to be at home. Uncontrolled with oral narcotics. Discussed the condition, nature, etiology and course of natural history with the patient. Treatment options including surgical and nonoperative treatment were reviewed. Risks and benefits of each as well as alternatives reviewed. The patient's questions were answered. Conservative treatment ice, compression and elevation. Admitted for pain control and further care with plan to proceed operating room with open reduction internal fixation left ankle. (2) Acute disruption of syndesmosis of ankle joint: Code(s): S93.439A - Sprain of tibiofibular ligament of unspecified ankle, initial encounter Status: Acute Plan Discussed nonoperative and operative treatment options with the patient. Risks and benefits of each as well as alternatives were reviewed. All of the patient's questions were answered. The risks of surgery reviewed including but not limited to: Neurovascular damage, wound complication, infection, blood clot, pulmonary embolus, stroke, myocardial infarction, and anesthetic risks up to and including . Continued pain and possible dysfunction were explained. Specific risks of the procedure including later recurrence of deformity. No guarantees were offered. If hardware used, discussed risk of failure/ breakage and possible need for removal. If complications occur, the patient understands the need for further treatment, possible further surgery. Patient verbalizes understanding and wishes to proceed. PLAN: Open reduction internal fixation left ankle fracture, left ankle syndesmosis disruption.
[2024-04-08] MEDS: HYDROmorphone HCL INJ (*CRX) 1 MG/ML SYR IV PUSH ×2 (15:18→18:10)
[2024-04-08] MEDS: LACTATED RINGERS 1,000 ML 30 ML IV CONT (15:19)
[2024-04-08 15:38] LABS: Basophils Percent Auto 0.3 % (0.2-1.2); Eosinophils Absolute Auto 0.1 K/mm3 (0-0.3); Eosinophils Percent Auto 2.1 % (0-4.4); Hematocrit 35.8 % (37.0-47.0); Immature Granulocyte Absolute 0.01 K/mm3 (0.00-0.031); Immature Granulocyte Percent A 0.2 % (0-0.5); Lymphocytes Absolute Auto 1.93 K/mm3 (0.9-3.2); Lymphocytes Percent Auto 30.6 % (18.3-44.2); Mean Corpuscular HGB Conc 33.5 g/dl (32-36); Mean Corpuscular Hemoglobin 30.9 pg (26-34); Mean Corpuscular Volume 92.3 fl (80-100); Mean Platelet Volume 8.8 fl (7.4-10.4); Monocytes Absolute Auto 0.6 K/mm3 (0.1-0.6); Neutrophils Absolute Auto 3.6 K/mm3 (1.3-6.7); Neutrophils Percent Auto 57.8 % (45.5-73.1); Platelet Count Result 254 k/mm3 (150-375); Red Blood Count 3.88 M/mm3 (4.2-5.4); Red Cell Distribution Width 12.8 % (11.5-14.5); White Blood Count 6.3 K/mm3 (4.5-10.0)
[2024-04-08 15:52] LABS: INR 0.9; Partial Thromboplastin Time 28.3 Seconds (22.3-36.8); Prothrombin Time 12.4 Seconds (11.1-14.7)
[2024-04-08 15:54] LABS: Anion Gap 8 mmol/L (4-12); Blood Urea Nitrogen 20 mg/dL (7-17); Calcium 9.1 mg/dL (8.4-10.2); Carbon Dioxide 27 mmol/L (22-30); Chloride 103 mmol/L (98-107); Estimated CRCL calculation 44 ml/min; Estimated Glomerular Filt Rate 53; Glucose 122 mg/dL (65-110); Potassium 4.1 mmol/L (3.4-5.0); Sodium 138 mmol/L (137-145)
--- OUTSIDE RECORDS SUMMARY | 2024-04-08 17:25 | XMS_ITS | Clinical Summary ---
Author Organization [facility] Address [address] [facility] [place] [address] Care Team Providers Care Nailhead Operator Name Role Phone Rolando Guevara MD Primary Care Provider [phone] Source Comments [facility],non-owned Affiliates and Associated Physician Practices is amultiple site organization consisting of ambulatory clinics and hospital sitesin [place], [place], [place] and [place]. This disclosure is being madepursuant to the Care Everywhere program and may not contain all information available regarding this patient. Last updated 17.[facility] Allergies No known active allergies Medications * [...] CDT Respiratory Rate 20 01/18/2022 10:40 AM WEBMETHODS ARCHITECT Oxygen Saturation 97% 08/06/2022 1:12 PM CDT [...] age to complete this topic Care Teams Nailhead Operator Relationship Specialty Start Date End Date Rolando Guevara MD [address] [place] [address] PCP - General 12/24/20
--- OUTSIDE RECORDS SUMMARY | 2024-04-08 17:25 | XMS_ITS | Referral Summary ---
Author Organization [facility] Address [address] [place] [address] Care Team Providers Care Womens Volleyball Coach Name Role Phone Luis E Pena MD [...] on file Legal Sex Female 4:51 PM INTERDISCIPLINARY PROFESSOR Gender Identity Not on file Sexual Orientation Not on file Plan of Treatment Not on file Insurance [employer] [facility] [place] [id number] Care Teams Womens Volleyball Coach Relationship Specialty Start Date End Date Luis E Pena MD [address] [place] [address] PCP - General Family Medicine 09/29/18
--- OUTSIDE RECORDS SUMMARY | 2024-04-08 17:25 | XMS_ITS | Clinical Summary ---
Author Organization [facility] [place] Address [facility] [place] [address] Care Team Providers Care Hop Grower Name Role Phone Luis E Pena MD [...] on file Legal Sex Female 4:51 PM DIRECTOR OF STUDENT AID Gender Identity Not on file Sexual Orientation Not on file Obstetrics History Plan of Treatment Not on file Insurance [employer] [facility] [place] [id number] Care Teams Hop Grower Relationship Specialty Start Date End Date Luis E Pena MD [address] [place] [address] PCP - General Family Medicine 09/29/18
--- OUTSIDE RECORDS SUMMARY | 2024-04-08 17:25 | XMS_ITS | Referral Summary ---
Author Organization [facility] Address [address] [facility] [place] [address] Care Team Providers Care Grain Trimmer Name Role Phone Rolando Guevara MD Primary Care Provider [phone] Source Comments [facility],non-owned Affiliates and Associated Physician Practices is amultiple site organization consisting of ambulatory clinics and hospital sitesin [place], [place], [place] and [place]. This disclosure is being madepursuant to the Care Everywhere program and may not contain all information available regarding this patient. Last updated 17.[facility] Allergies No known active allergies Medications * [...] CDT Respiratory Rate 20 01/18/2022 10:40 AM IMMERSION METALCLEANER Oxygen Saturation 97% 08/06/2022 1:12 PM CDT Inhaled Oxygen Concentration - - Weight 68.9 kg (152 lb) 06/26/2023 2:36 PM CDT Height 157.5 cm (5' 2 ) 06/26/2023 2:36 PM CDT Body Mass Index 27.8 06/26/2023 2:36 PM CDT Plan of Treatment Not on file Administered Medications Care Teams Grain Trimmer Relationship Specialty Start Date End Date Rolando Guevara MD [address] [place] [address] PCP - General 12/24/20
--- OUTSIDE RECORDS SUMMARY | 2024-04-08 17:25 | XMS_ITS | Patient Health Summary ---
Author Organization [facility] Address [address] [facility] [place] [address] Care Team Providers Care Flight Radio Operator Name Role Phone Rolando Guevara MD Primary Care Provider [phone] Note from [facility],non-owned Affiliates and Associated Physician Practices is amultiple site organization consisting of ambulatory clinics and hospital sitesin [place], [place], [place] and [place]. This disclosure is being madepursuant to the Care Everywhere program and may not contain all information available regarding this patient. Last updated 17.[facility] Allergies No known active allergies Medications * [...] CDT Respiratory Rate 20 01/18/2022 10:40 AM POURED PIPE MAKER Oxygen Saturation 97% 08/06/2022 1:12 PM CDT [...] Unknown 10/08/2018 12:41 PM CDT Reymundo Judd LABORATORY AIDE-SLUBBER RUNNER LAB - POINT OF CARE ORDERABLES Care Teams Flight Radio Operator Relationship Specialty Start Date End Date Rolando Guevara MD [address] [place] [address] PCP - General 12/24/20
[2024-04-08] MEDS: HYDROcodone/acetaminophen (*CRX) 7.5-325 MG TABLET 1 TAB PO (19:59)
[2024-04-08 21:35] VITALS: BP 141/67; PULSE 77; RESP 20; TEMP 36.7; O2SAT 96
[2024-04-08] MEDS: HYDROmorphone HCL INJ (*CRX) 2 MG/ML VIAL 1 MG IV PUSH (21:52)
[2024-04-08] MEDS: IBUPROFEN IV 400 MG in SODIUM CHLORIDE 0.9% IV 100 ML 208 MG IVPB (23:34)
[2024-04-09] VITALS (17 sets, daily range): BP systolic 110–134; BP diastolic 45–90; PULSE 71–92; RESP 8–20; TEMP 36.2–37.1; O2SAT 90–99
[2024-04-09] MEDS: HYDROmorphone HCL INJ (*CRX) 2 MG/ML VIAL 1 MG IV PUSH ×2 (07:45→11:25)
--- NOTE | 2024-04-09 09:05 | WPDHPUPDATE1 ---
History and Physical Update Update Date/Time: 04/09/24 09:05 History and Physical has been reviewed, including an updated exam of the patient. There are NO changes in the patient's condition. Risks, benefits, and alternatives have been discussed and questions answered. Patient agrees to proceed with procedure.
[2024-04-09] MEDS: PANTOPRAZOLE 40 MG TABLET PO (09:31)
[2024-04-09] MEDS: ROSUVASTATIN 5 MG TABLET BY MOUTH (09:31)
[2024-04-09] MEDS: VENLAFAXINE HCL XR 75 MG CAP.ER.24H 225 MG PO (09:32)
[2024-04-09] MEDS: CYCLOBENZAPRINE HCL 10 MG TABLET PO (09:32)
[2024-04-09] MEDS: HYDROcodone/acetaminophen (*CRX) 7.5-325 MG TABLET 1 TAB PO ×2 (10:16→22:10)
[2024-04-09] MEDS: LACTATED RINGERS 1,000 ML 30 ML IV CONT ×2 (12:45→17:08)
[2024-04-09] MEDS: HYDROmorphone HCL INJ (*CRX) 1 MG/ML SYR 0.5 MG IV PUSH (13:10)
[2024-04-09] MEDS: KETOROLAC 15 MG/ML VIAL (*BKC) IV PUSH (13:15)
[2024-04-09] MEDS: ACETAMINOPHEN 500 MG TABLET 1000 MG PO (13:16)
[2024-04-09] MEDS: TRANEXAMIC ACID 1,000MG/ISO100 1,000 MG/100 ML BAG 200 MG IVPB (13:20)
--- NOTE | 2024-04-09 14:09 | WPDANESEPPF ---
Anes - Initial Pre Proc Eval Procedure: Operation Date: 04/09/24 14:00 Proposed Procedures p Open Reduction Internal Fixation Left Ankle - Michele Catalan MD Date/Time: 04/09/24 14:09 Surgeon: Michele Catalan MD Pre Op Diagnosis: Left Ankle Fracture Patient Data Age: 69 Gender: F Height: 1.57 m Weight: 73.5 kg Last Vital Signs Temp 36.9 C 04/09/24 12:45 Pulse 71 04/09/24 12:45 Resp 16 04/09/24 12:45 BP 134/66 04/09/24 12:45 Pulse Ox 97 04/09/24 12:45 O2 Del Method Room Air 04/09/24 12:45 Allergies Allergy/AdvReac Type Severity Reaction Status Date / Time No Known Allergies Allergy Verified 04/09/24 13:23 Home Medications ?Medication ?Instructions ?Recorded ?Confirmed ?Type aspirin 81 mg tablet,delayed 81 mg PO DAILY 09/26/20 04/08/24 History release venlafaxine 75 mg tablet,extended 225 mg PO DAILY 09/26/20 04/08/24 History release 24 hr esomeprazole magnesium 40 mg 40 mg PO DAILY #90 caps 08/30/23 04/08/24 Rx capsule,delayed release (Nexium) rosuvastatin 5 mg tablet See Rx Instructions .Route 11/21/23 04/08/24 Rx .COMPLEX #90 tabs cyclobenzaprine 10 mg tablet 10 mg PO BID PRN muscle spasm #14 04/07/24 04/08/24 Rx tabs hydrocodone 5 mg-acetaminophen 325 1 tablet PO Q12H PRN pain #14 tabs 04/07/24 04/08/24 Rx mg tablet Laboratory Tests 04/08/24 15:27 WBC 6.3 K/mm3 (4.5-10.0) RBC 3.88 L M/mm3 (4.2-5.4) Hgb 12.0 g/dL (12.0-15.0) Hct 35.8 L % (37.0-47.0) MCV 92.3 fl (80-100) MCH 30.9 pg (26-34) MCHC 33.5 g/dl (32-36) RDW 12.8 % (11.5-14.5) Plt Count 254 k/mm3 (150-375) MPV 8.8 fl (7.4-10.4) Immature Gran % (Auto) 0.2 % (0-0.5) Neut % (Auto) 57.8 % (45.5-73.1) Lymph % (Auto) 30.6 % (18.3-44.2) [place] % (Auto) 9.0 H % (2.6-8.5) Eos % (Auto) 2.1 % (0-4.4) Baso % (Auto) 0.3 % (0.2-1.2) Lymph # (Auto) 1.93 K/mm3 (0.9-3.2) [place] # (Auto) 0.6 K/mm3 (0.1-0.6) Eos # (Auto) 0.1 K/mm3 (0-0.3) Baso # (Auto) 0.0 K/mm3 (0.0-0.1) Abs Immat Gran (auto) 0.01 K/mm3 (0.00-0.031) Absolute Neuts (auto) 3.6 K/mm3 (1.3-6.7) Absolute Nucleated RBC 0.000 K/mm3 (0.0-0.012) Nucleated RBC % 0.0 % (0.0-0.2) PT 12.4 Seconds (11.1-14.7) INR 0.9 APTT 28.3 Seconds (22.3-36.8) Sodium 138 mmol/L (137-145) Potassium 4.1 mmol/L (3.4-5.0) Chloride 103 mmol/L (98-107) Carbon Dioxide 27 mmol/L (22-30) Anion Gap 8 mmol/L (4-12) BUN 20 H mg/dL (7-17) Creatinine 1.03 H mg/dL (0.7-1.0) Estim Creat Clear Calc 44 ml/min Estimated GFR 53 L (59 - ) Glucose 122 H mg/dL (65-110) Calcium 9.1 mg/dL (8.4-10.2) ECG: SR with first degree AV block Patient hx anesthesia problems: none Family hx anesthesia problems: none Results Review: All pre-operative results and documents have been reviewed as part of the pre-operative evaluation. [facility] Past Medical History Medical History Acute disruption of syndesmosis of ankle joint Overweight (BMI 25.0-29.9) Depression GERD (gastroesophageal reflux disease) HLD (hyperlipidemia) Surgical History Surgical History History of eye surgery History of rectal surgery History of carpal tunnel release History of section History of appendectomy Family History Family History Mother Diabetes mellitus Sibling Cerebrovascular accident Unknown Breast cancer Kidney disorder Arthritis Social History Social History Social History: caffeine use Smoking status: Never smoker Second hand tobacco smoke exposure: No Alcohol intake: never Alcohol use details: rarely Substance use: never Substance use type: does not use Do You Feel Safe in your Home?: Yes Lack of Transportation: No Lack of Food: Never True Current Housing: I Have Housing Concerned About Future Housing: No Difficulty Paying Gas/Electric Bills: No Difficulty Paying for Meds: No Currently Unemployed: No Education: Trade/Vocational Certificate Difficulty w/ Childcare or Family Care: No Living arrangements: with family Occupation/Education: retired Gender identity (if verbalized by the patient): Female Sexual Orientation (if Verbalized by the Patient): Straight or Heterosexual Spiritual care concerns: No Anes - Eval Final PreProcedure Day of Procedure 04/09/24 14:09 Patient weight: overweight Heart: regular rate and rhythm Lungs: normal air movement Airway: Mallampati scale class II Neurological: alert and oriented Last oral intake: >/= 8 hours ASA classification: II Emergent: no Anesthetic plan: proceed Anesthesia type and monitoring: general and standard monitoring Results Review: All pre-operative results and documents have been reviewed as part of the pre-operative evaluation. Informed Consent: The patient's anesthetic plan and its attendant risks and benefits were discussed with the patient/family/POA. Questions were solicited and answers provided to the satisfaction of the patient/family/POA.
--- NOTE | 2024-04-09 14:12 | W.PM.PROC2 ---
Procedure Note - Detailed Date of Procedure 04/09/24 Pre-op Diagnosis Left Ankle Fracture, trimalleolar fracture, syndesmosis disruption Post-op Diagnosis Same Procedure Performed Open reduction internal fixation left ankle trimalleolar fracture including posterior malleolus, ORIF distal left syndesmosis disruption. Surgeon Michele Catalan MD Assistant Football Coach 1st executive chef assistant Anesthesia General Indications 69-year-old woman who fell and sustained a left ankle fracture dislocation. Noted to have trimalleolar fracture and subluxation with disruption of the syndesmosis. She presents now for operative stabilization. Description of Procedure After informed consent, the operative extremity was marked in the preoperative holding area. Patient received intravenous antibiotics. Patient was then taken to the operating room and underwent general anesthesia by the anesthesia team. Positioned supine on the operating room table with a soft bump under the ipsilateral hip. A time-out was performed confirming the patient, site of the surgery, operative plan. Left Lower extremity then prepped and draped in the usual sterile surgical fashion using DuraPrep skin solution. Foot and ankle exsanguinated and a thigh tourniquet inflated to 250 mmHg. Longitudinal incision made over the lateral ankle distal fibula with a 15 blade knife. Hemostasis controlled with electrocautery. Full-thickness soft tissue flaps developed and the fascia was incised in line with the skin incision. Fracture identified and cleared with a dental pick, irrigation and rongeur. The elevated fracture fragment anteriorly keeping the soft tissue attachments to the fragment. This allowed window to through to address posterior malleolus fracture. Posterior malleolus fracture cleared with dental pick, rongeur irrigation. The articular surface the talus had mild posttraumatic scuff bridges on the mid and posterior aspect. We reduced the fracture fragment held this with a bone pulling clamp. Image intensification confirmed reduction. Fixation achieved 4.0 partially-threaded cannulated screws placed percutaneously anterior to posterior. Radiographs show well-maintained alignment position of the hardware. We then returned to the fibular fracture. Fracture reduced and held with bone-holding clamp. Image intensification confirmed reduction of the fracture and the ankle mortise. Fixation achieved with 3.5 mm cortical lag screw and neutralized with a lateral plate with unicortical screws distal to fracture and bicortical screws proximal to the fracture. Good alignment and stability of the fracture noted. Image intensification used to confirm reduction of the fracture and placement of the hardware. Syndesmosis was then addressed. Dissection anterior to the fibula allowed visualization of the syndesmosis which was reduced and held with a clamp. Fixation achieved from lateral to medial with the Arthrex syndesmosis tight rope fixation system. Drill hole placed through the fibular plate and across the tibia. Tight rope then passed and secured on the medial side. With the ankle in neutral dorsiflexion position tight rope was then secured. Image intensification confirmed reduction of ankle mortise and syndesmosis, placement of the hardware. Medial malleolus then addressed. Longitudinal incision made over the medial ankle with a 15 blade knife. Hemostasis controlled electrocautery. Fascia incised in line with the skin incision. Fracture identified and irrigated. This was reduced and pinned. Image intensification confirm reduction. Fixation achieved with 4.0 mm screw x1 and 3.0 mm screw x1. Stress of the ankle performed with good stability of the ankle mortise and syndesmosis in all directions. Posterior malleolus noted to be reduced and stable. Wound thoroughly irrigated with solution. Fascia repaired with 00 Vicryl interrupted suture. Subcutaneous tissue repaired with 000 Monocryl interrupted suture and Skin approximated with chay. Sterile dressings applied followed by bulky dressing and splint. Patient awoken from anesthesia, extubated and taken to the recovery room in stable condition. All sponge, needle and instrument counts correct at the end of the case. Palpable dorsalis pedis pulse noted prior to dressing. Implants Arthrex distal fibula plate and screws, Arthrex syndesmosis tightrope system, 4.0 mm cannulated screw x3 Estimated Blood Loss 50 Tourniquet Time Total Tourniquet Time: 60 Drains No Packing No Pathology None sent Complications None Condition Stable Disposition PACU [facility] Billing Surgery - Charge Forward: Surgery Billing ([id number], [id number])
[2024-04-09] MEDS: BUPIVACAINE/EPINEPHRINE 0.5% 30 ML VIAL INFILTRATE (14:32)
[2024-04-09] MEDS: ceFAZolin 2 GM/D5W 50 ML 2 GM/50 ML BAG IVPB ×2 (14:32→21:39)
[2024-04-10] VITALS (9 sets, daily range): BP systolic 120–134; BP diastolic 53–65; PULSE 72–96; RESP 14–20; TEMP 36.6–36.8; O2SAT 96–99
[2024-04-10] MEDS: HYDROcodone/acetaminophen (*CRX) 7.5-325 MG TABLET 1 TAB PO ×4 (04:12→17:30)
[2024-04-10] MEDS: ceFAZolin 2 GM/D5W 50 ML 2 GM/50 ML BAG IVPB ×2 (06:13→14:12)
[2024-04-10] MEDS: ASPIRIN 81 MG ENTERIC TABLET PO (09:43)
[2024-04-10] MEDS: ROSUVASTATIN 5 MG TABLET BY MOUTH (09:45)
[2024-04-10] MEDS: VENLAFAXINE HCL XR 75 MG CAP.ER.24H 225 MG PO (09:46)
[2024-04-10] MEDS: PANTOPRAZOLE 40 MG TABLET PO (09:46)
[2024-04-10] MEDS: SENNA/DOCUSATE SODIUM TABLET 2 TAB PO ×2 (09:48→17:30)
[2024-04-10] MEDS: polyethylene glycoL 3350 17 GM POWD.PACK PO (09:50)
--- NOTE | 2024-04-10 10:32 | PM.PNORT ---
Progress Note: A&P Assessment and Plan (1) Closed trimalleolar fracture: Qualifiers: Encounter type: subsequent encounter Laterality: left Fracture healing: with routine healing Qualified Code(s): S82.852D - Displaced trimalleolar fracture of left lower leg, subsequent encounter for closed fracture with routine healing Code(s): S82.853A - Displaced trimalleolar fracture of unspecified lower leg, initial encounter for closed fracture Status: Acute Assessment and Plan: Postoperative day 1 left ankle fracture. Patient up in chair. Starting to work with therapy for ambulation with nonweightbearing left leg. Patient tolerating regular diet. Still with significant pain. Discussed need for pain control and to clear physical therapy prior to discharge. Subjective Subjective Date/Time Seen: 04/10/24 10:32 Post Op day: 1 Principal diagnosis: Left ankle fracture Interval history: patient awake and up in chair. Operative treatment and findings reviewed with the patient. Complains of lateral ankle pain. Exam Const: General: healthy appearing; No in distress or confusion Orientation/consciousness: patient oriented x3 and No confusion HENMT: Head: normal to inspection, normocephalic and atraumatic Eyes: Conjunctivae: conjunctivae normal Sclera: sclerae normal Resp: Effort & Inspection: normal respiratory effort and no audible wheezes Neuro: General: patient oriented x3 and No confusion Extrem: Other: Left leg splint in place. Toes with good capillary refill, good sensation and good movement. Negative Homans sign. Psych: Affect: normal affect Objective Data Vital Signs Vital Signs: Vital Signs - 24 hr 04/09/24 12:45 04/09/24 17:08 04/09/24 17:15 Temperature 98.5 F 97.2 F L Pulse Rate 71 88 72 Respiratory Rate 16 12 8 L Blood Pressure 134/66 123/59 L 110/55 L Pulse Oximetry 97 92 95 Oxygen Delivery Room Air Simple Face Mask Simple Face Mask Oxygen Flow Rate 8 8 04/09/24 17:25 04/09/24 17:30 04/09/24 17:45 Temperature Pulse Rate 76 78 Respiratory Rate 10 L 12 Blood Pressure 120/63 117/69 Pulse Oximetry 95 99 99 Oxygen Delivery Simple Face Mask Simple Face Mask Simple Face Mask Oxygen Flow Rate 8 8 8 04/09/24 17:49 04/09/24 17:56 04/09/24 18:00 Temperature Pulse Rate 75 Respiratory Rate 13 Blood Pressure 120/60 Pulse Oximetry 93 90 93 Oxygen Delivery Room Air Nasal Cannula Nasal Cannula Oxygen Flow Rate 2 2 04/09/24 18:16 04/09/24 18:35 04/09/24 18:50 Temperature 97.7 F 98.0 F 97.9 F Pulse Rate 79 80 82 Respiratory Rate 17 18 16 Blood Pressure 127/49 L 120/62 115/45 L Pulse Oximetry 95 99 98 Oxygen Delivery Oxygen Flow Rate 04/09/24 19:50 04/09/24 20:00 04/09/24 20:47 Temperature 98.4 F 98.4 F Pulse Rate 92 92 Respiratory Rate 18 18 Blood Pressure 112/90 112/90 Pulse Oximetry 96 95 96 Oxygen Delivery Room Air Oxygen Flow Rate 04/09/24 23:50 04/10/24 03:50 04/10/24 04:39 Temperature 98.8 F 98.3 F 98.3 F Pulse Rate 76 81 81 Respiratory Rate 18 18 18 Blood Pressure 122/57 L 130/58 L 130/58 L Pulse Oximetry 95 99 99 Oxygen Delivery Oxygen Flow Rate 04/10/24 07:50 04/10/24 07:58 04/10/24 09:06 Temperature 97.8 F 97.8 F Pulse Rate 72 72 Respiratory Rate 14 14 Blood Pressure 131/63 131/63 Pulse Oximetry 98 98 Oxygen Delivery Room Air Oxygen Flow Rate Intake/Output Intake/Output: Intake & Output 04/07/24 04/08/24 04/09/24 04/10/24 23:59 23:59 23:59 23:59 Intake Total 1080 424 440 Balance 1080 424 440 Meds/Results Medications: Active Medications Generic Name Dose Route Start Last Admin Trade Name Freq PRN Reason Stop Dose Admin Acetaminophen 500 mg 04/08/24 15:00 Acetaminophen 500 Mg Tablet PO Q6H PRN Mild Pain (1-3) or Fever Hydrocodone Bitart/Acetaminophen 1 tab 04/08/24 14:57 04/10/24 09:30 Hydrocodone/Acetaminophen (*Crx) 7.5-325 Mg Tablet PO 1 tab Q4H PRN Administration Pain Rated 4-6 Aspirin 81 mg 04/10/24 09:00 04/10/24 09:43 Aspirin 81 Mg Enteric Tablet PO 81 mg DAILY GISELA Administration Cyclobenzaprine HCl 10 mg 04/09/24 09:04 04/09/24 09:32 Cyclobenzaprine Hcl 10 Mg Tablet PO 10 mg BID PRN Administration muscle spasm Hydromorphone HCl 1 mg 04/09/24 18:05 Hydromorphone Hcl Inj (*Crx) 1 Mg/Ml Syr IV PUSH Q2H PRN Breakthrough Pain Rated 7-10 or NPO Hydroxyzine Pamoate 50 mg 04/09/24 18:05 Hydroxyzine Pamoate 25 Mg Capsule PO Q4H PRN Itching Cefazolin Sodium 2 gm in 50 mls @ 100 mls/hr 04/09/24 22:00 04/10/24 06:47 Ancef 2 Gm/D5w 50 Ml IVPB 04/10/24 14:29 Infused Q8H GISELA Infusion Ibuprofen 800 mg in 200 mls @ 400 mls/hr 04/09/24 18:05 Caldolor 800 Mg/200 Ml IVPB Q6H PRN Breakthrough Pain Rated 1-3 or NPO Naloxone HCl 0.1 mg 04/09/24 18:05 Naloxone Hcl 0.4 Mg/Ml Vial IV PUSH Q2M PRN Opiate Reversal Ondansetron HCl 4 mg 04/09/24 18:05 Ondansetron Inj 4 Mg/2 Ml Vial IV PUSH Q4H PRN Nausea And Vomiting Pantoprazole Sodium 40 mg 04/09/24 10:00 04/10/24 09:46 Pantoprazole 40 Mg Tablet PO 40 mg QAM GISELA Administration Polyethylene Glycol 17 gm 04/10/24 09:00 04/10/24 09:50 Polyethylene Glycol 3350 17 Gm Powd.Pack PO 17 gm QAM GISELA Administration Rosuvastatin Calcium 5 mg 04/09/24 10:00 04/10/24 09:45 Rosuvastatin 5 Mg Tablet BY MOUTH 5 mg DAILY GISELA Administration Senna/Docusate Sodium 2 tab 04/10/24 09:00 04/10/24 09:48 Senna/Docusate Sodium Tablet PO 2 tab BID GISELA Administration Venlafaxine HCl 225 mg 04/09/24 10:00 04/10/24 09:46 Venlafaxine Hcl Xr 75 Mg Cap.Er.24h PO 225 mg DAILY GISELA Administration Radiology Results: ITS Impressions Intraoperative X-Ray 04/10/24 06:44 Impression: 1: Anatomic alignment of left ankle status post internal reduction of trimalleolar fracture.
[2024-04-10] MEDS: HYDROmorphone HCL INJ (*CRX) 1 MG/ML SYR IV PUSH (11:20)
[2024-04-10] MEDS: IBUPROFEN IV 800 MG/200 ML 800 MG/200 ML BAG 400 MG IVPB (13:04)
--- NOTE | 2024-04-10 17:44 | PC.NURSE ---
On 04/10/24, the student, Luis Miguel Murray, provided care and completed [facility] documentation on this patient. I have reviewed the student's documentation and agree with the findings.
[2024-04-10] MEDS: CYCLOBENZAPRINE HCL 10 MG TABLET PO (20:24)
[2024-04-10] MEDS: ACETAMINOPHEN 500 MG TABLET PO (20:26)
[2024-04-11] MEDS: HYDROcodone/acetaminophen (*CRX) 7.5-325 MG TABLET 1 TAB PO ×5 (00:19→18:15)
[2024-04-11 04:49] VITALS: BP 135/69; PULSE 82; RESP 20; TEMP 36.8; O2SAT 97
[2024-04-11] MEDS: ASPIRIN 81 MG ENTERIC TABLET PO (07:57)
[2024-04-11] MEDS: ROSUVASTATIN 5 MG TABLET BY MOUTH (07:57)
[2024-04-11] MEDS: PANTOPRAZOLE 40 MG TABLET PO (07:58)
[2024-04-11] MEDS: polyethylene glycoL 3350 17 GM POWD.PACK PO (07:58)
[2024-04-11] MEDS: VENLAFAXINE HCL XR 75 MG CAP.ER.24H 225 MG PO (07:58)
[2024-04-11] MEDS: SENNA/DOCUSATE SODIUM TABLET 2 TAB PO ×2 (07:58→18:15)
--- NOTE | 2024-04-11 10:51 | PM.PNORT ---
Progress Note: A&P Assessment and Plan (1) Closed trimalleolar fracture: Qualifiers: Encounter type: subsequent encounter Fracture healing: with routine healing Laterality: left Qualified Code(s): S82.852D - Displaced trimalleolar fracture of left lower leg, subsequent encounter for closed fracture with routine healing Code(s): S82.853A - Displaced trimalleolar fracture of unspecified lower leg, initial encounter for closed fracture Status: Acute Assessment and Plan: Postoperative day 2 left ankle fracture. Physical therapy for ambulation with nonweightbearing left leg. making progress but patient still unsteady on her feet. Patient tolerating regular diet. Still with significant pain. Pain controlled with IV medication overnight. Still requiring IV medication today. Discussed need for pain control and to clear physical therapy prior to discharge. Will hold discharge today as she is still requiring IV medication. Continue to work with physical therapy. She is going to try and wean to oral medication. If she is stable tomorrow plan discharge at that time. Subjective Subjective Date/Time Seen: 04/11/24 10:51 Post Op day: 2 Principal diagnosis: Left ankle fracture Interval history: patient awake , in bed. Operative treatment and findings reviewed with the patient. Complains of persistent lateral ankle pain and left leg pain. slow progress with physical therapy. Still requiring breakthrough IV medication for pain control. Exam Const: General: healthy appearing; No in distress or confusion Orientation/consciousness: patient oriented x3 and No confusion HENMT: Head: normal to inspection, normocephalic and atraumatic Eyes: Conjunctivae: conjunctivae normal Sclera: sclerae normal Resp: Effort & Inspection: normal respiratory effort and no audible wheezes Neuro: General: patient oriented x3 and No confusion Extrem: Other: Left leg splint in place. Toes with good capillary refill, good sensation and good movement. Negative Homans sign. Psych: Affect: normal affect Objective Data Vital Signs Vital Signs: Vital Signs - 24 hr 04/10/24 11:47 04/10/24 16:45 04/10/24 19:50 Temperature 97.8 F 98.0 F Pulse Rate 78 96 80 Respiratory Rate 18 20 18 Blood Pressure 130/65 134/60 120/53 L Pulse Oximetry 98 96 97 Oxygen Delivery 04/10/24 20:00 04/10/24 20:34 04/11/24 04:49 Temperature 98.0 F 98.3 F Pulse Rate 80 80 82 Respiratory Rate 18 18 20 Blood Pressure 120/53 L 135/69 Pulse Oximetry 97 97 97 Oxygen Delivery Room Air Intake/Output Intake/Output: Intake & Output 04/08/24 04/09/24 04/10/24 04/11/24 23:59 23:59 23:59 23:59 Intake Total 9437 172 1033 480 Balance 0601 433 8765 480 Meds/Results Medications: Active Medications Generic Name Dose Route Start Last Admin Trade Name Freq PRN Reason Stop Dose Admin Acetaminophen 500 mg 04/08/24 15:00 04/10/24 20:26 Acetaminophen 500 Mg Tablet PO 500 mg Q6H PRN Administration Mild Pain (1-3) or Fever Hydrocodone Bitart/Acetaminophen 1 tab 04/08/24 14:57 04/11/24 07:57 Hydrocodone/Acetaminophen (*Crx) 7.5-325 Mg Tablet PO 1 tab Q4H PRN Administration Pain Rated 4-6 Aspirin 81 mg 04/10/24 09:00 04/11/24 07:57 Aspirin 81 Mg Enteric Tablet PO 81 mg DAILY GISELA Administration Cyclobenzaprine HCl 10 mg 04/09/24 09:04 04/10/24 20:24 Cyclobenzaprine Hcl 10 Mg Tablet PO 10 mg BID PRN Administration muscle spasm Hydromorphone HCl 1 mg 04/09/24 18:05 04/10/24 11:20 Hydromorphone Hcl Inj (*Crx) 1 Mg/Ml Syr IV PUSH 1 mg Q2H PRN Administration Breakthrough Pain Rated 7-10 or NPO Hydroxyzine Pamoate 50 mg 04/09/24 18:05 Hydroxyzine Pamoate 25 Mg Capsule PO Q4H PRN Itching Ibuprofen 800 mg in 200 mls @ 400 mls/hr 04/09/24 18:05 04/10/24 13:34 Caldolor 800 Mg/200 Ml IVPB Infused Q6H PRN Infusion Breakthrough Pain Rated 1-3 or NPO Naloxone HCl 0.1 mg 04/09/24 18:05 Naloxone Hcl 0.4 Mg/Ml Vial IV PUSH Q2M PRN Opiate Reversal Ondansetron HCl 4 mg 04/09/24 18:05 Ondansetron Inj 4 Mg/2 Ml Vial IV PUSH Q4H PRN Nausea And Vomiting Pantoprazole Sodium 40 mg 04/09/24 10:00 04/11/24 07:58 Pantoprazole 40 Mg Tablet PO 40 mg QAM GISELA Administration Polyethylene Glycol 17 gm 04/10/24 09:00 04/11/24 07:58 Polyethylene Glycol 3350 17 Gm Powd.Pack PO 17 gm QAM GISELA Administration Rosuvastatin Calcium 5 mg 04/09/24 10:00 04/11/24 07:57 Rosuvastatin 5 Mg Tablet BY MOUTH 5 mg DAILY GISELA Administration Senna/Docusate Sodium 2 tab 04/10/24 09:00 04/11/24 07:58 Senna/Docusate Sodium Tablet PO 2 tab BID GISELA Administration Venlafaxine HCl 225 mg 04/09/24 10:00 04/11/24 07:58 Venlafaxine Hcl Xr 75 Mg Cap.Er.24h PO 225 mg DAILY GISELA Administration Radiology Results: ITS Impressions Intraoperative X-Ray 04/10/24 06:44 Impression: 1: Anatomic alignment of left ankle status post internal reduction of trimalleolar fracture.
[2024-04-11] MEDS: IBUPROFEN IV 800 MG/200 ML 800 MG/200 ML BAG 400 MG IVPB (11:04)
[2024-04-11 14:00] VITALS: BP 136/84; PULSE 92; RESP 20; TEMP 37; O2SAT 98
[2024-04-11 21:12] VITALS: BP 129/53; PULSE 81; RESP 12; TEMP 36.7; O2SAT 100
[2024-04-11] MEDS: ACETAMINOPHEN 500 MG TABLET PO (22:27)
[2024-04-12] MEDS: guaiFENesin/DEXTROMETHORPHAN 10 ML UDC PO (04:12)
[2024-04-12 06:00] VITALS: BP 91/62; PULSE 90; RESP 16; TEMP 37.7; O2SAT 98
[2024-04-12 06:20] LABS: Glucose Point of Care 95 mg/dl (65-105)
[2024-04-12 07:27] VITALS: BP 136/56; PULSE 82; RESP 22; TEMP 38.1; O2SAT 96
[2024-04-12 08:00] VITALS: O2SAT 96
[2024-04-12] MEDS: PANTOPRAZOLE 40 MG TABLET PO (08:13)
[2024-04-12] MEDS: SENNA/DOCUSATE SODIUM TABLET 2 TAB PO (08:13)
[2024-04-12] MEDS: ASPIRIN 81 MG ENTERIC TABLET PO (08:13)
[2024-04-12] MEDS: ROSUVASTATIN 5 MG TABLET BY MOUTH (08:14)
[2024-04-12] MEDS: polyethylene glycoL 3350 17 GM POWD.PACK PO (08:14)
[2024-04-12] MEDS: VENLAFAXINE HCL XR 75 MG CAP.ER.24H 225 MG PO (08:14)
[2024-04-12] MEDS: HYDROcodone/acetaminophen (*CRX) 7.5-325 MG TABLET 1 TAB PO (08:17)
--- NOTE | 2024-04-12 11:56 | PM.DS ---
DS: Admitting Diagnosis Discharge Date 04/12/24 Admitting Diagnosis Left ankle trimalleolar fracture DS: Discharge Diagnosis Discharge Diagnosis Plan Left ankle trimalleolar fracture DS: Summary Hospital Course Reason for hospitalization: Left ankle fracture Hospital Course: Patient admitted to the hospital on May 06 2024 with left ankle trimalleolar fracture with subluxation. Cleared for surgery and taken to the operating May 07 for open reduction internal fixation of left ankle. Transferred to floor postoperatively in stable condition. Postoperative course including physical therapy, occupational therapy and routine nursing. Pain control which required IV medications until the day of discharge. Was gradually weaned off the IV medicine. She tolerated regular diet and was voiding appropriately. DVT prophylaxis with aspirin. She had a cough with minimal sputum production and low-grade fever on the day of discharge to 100.5. Discussed viral condition and reviewed treatment with Robitussin cough syrup, pseudoephedrine and incentive spirometry. Instructions for return to emergency room or notify physician for any worsening condition or concerns/problems. Otherwise cleared for discharge. She was given a dose of IV antibiotics as well as conservative sinus medication and discharged home. Status at Discharge Cognitive/behavioral status at discharge: Alert and oriented x3, back to baseline Functional status at discharge: uses cane/walker Overall status at discharge: patient is back to baseline Time Spent with Patient Time attestation: Total time spent providing and/or coordinating discharge services: Exam Const: General: healthy appearing; No in distress or confusion Orientation/consciousness: patient oriented x3 and No confusion HENMT: Head: normal to inspection, normocephalic and atraumatic Eyes: Conjunctivae: conjunctivae normal Sclera: sclerae normal Resp: Effort & Inspection: normal respiratory effort and no audible wheezes Neuro: General: patient oriented x3 and No confusion Extrem: Other: Left leg splint in place. Toes with good capillary refill, good sensation and good movement. Negative Homans sign. Psych: Affect: normal affect DS: Data Data Completed and Pending Labs on day of discharge: Labs from last 24 hours 04/12/24 06:04 POC Capillary Glucose 95 Discharge Plan Discharge Attending physician on discharge: Gage Nobles Discharging Clinician: Kay Hull Anticipated Discharge Date/Time: 04/12/24 09:00 Patient Disposition: Home, Self-Care Activity: no shower, no driving and follow weight bearing status Diet: as tolerated Wound Care Instructions: follow printed instructions Discharge Instructions: GAGE NOBLES M.D. [facility] [address] [place] [address] POST OPERATIVE DISCHARGE INSTRUCTIONS FOOT/ANKLE SURGERY Elevate the involved extremity on pillows. For the first 48 hours, make sure that the foot is above the level of your heart Carefully observe the exposed toes for evidence of swelling or discoloration. If the dressing is uncomfortable or tight, call the Dr?s office. Keep the dressing clean and dry. Remove dressing only as directed by doctor. Splint in place, keep clean and dry and leave in place until your follow up appointment. If the pain medication does not provide adequate relief, please call Dr?s office. Take other medication as prescribed. Please call Dr?s office to confirm follow-up appointment for 1 week. If you have any questions, please call the Dr?s office. Diet as tolerated. Activity:____X____Restrictions as follows: NO weight on operative leg; crutches or walker for ambulation Do not drive for 24 hours, unless otherwise instructed. Additional instructions: Patient Instructions: Antibiotic Form Patient Language: Malay Stand Alone Forms: General Discharge Information Follow-up/Referrals: Gage Nobles MD [Physician] - 04/15/24 11:00 am Discharge Medications: New hydrocodone-acetaminophen 7.5-325 mg Tablet 1 tablet PO Q4-6H PRN (Reason: Pain Rated 4-6) Qty: 40 0RF dextromethorphan-guaifenesin 10-100 mg/5 mL Syrup 10 ml PO Q6H Qty: 237 0RF pseudoephedrine HCl 30 mg Tablet 30 mg PO Q4H PRN (Reason: Congestion) Qty: 15 0RF Continued venlafaxine 75 mg tablet extended release 24hr 225 mg PO DAILY aspirin 81 mg tablet,delayed release (DR/EC) 81 mg PO DAILY esomeprazole magnesium [Nexium] 40 mg capsule,delayed release(DR/EC) 40 mg PO DAILY Qty: 90 1RF rosuvastatin 5 mg tablet See Rx Instructions .ROUTE .COMPLEX Qty: 90 3RF Dose Instruction: TAKE 1 TABLET BY MOUTH DAILY Rx Instructions: TAKE 1 TABLET BY MOUTH DAILY Changed cyclobenzaprine 10 mg tablet 10 mg PO Q8H PRN (Reason: muscle spasm) Qty: 20 1RF Discontinued hydrocodone-acetaminophen 5-325 mg tablet 1 tablet PO Q12H PRN (Reason: pain) Qty: 14 0RF Date of admission: 04/08/24 14:55 Primary Care Provider: Rolando Guevara Admitting Provider: Gage Nobles Attending physician on admission: Gage Nobles Condition: Stable Quality VTE Prophylaxis VTE prophylaxis: pharmacologic ordered (Aspirin)
== END 2024-04-12 10:41 | disposition home or self-care (01) | DRG 494 ==
PROVIDERS: Admitting Provider Orthopaedic Surgery; PCP Family Medicine; Visit Provider Orthopaedic Surgery
PROC: 0QSK04Z Reposition Left Fibula with Internal Fixation Device, Open Approach (ICD-10-PCS; principal; 2024-04-09 14:00)
DX: S82.852A Displaced trimalleolar fracture of left lower leg, initial encounter for closed fracture (principal); S93.439A Sprain of tibiofibular ligament of unspecified ankle, initial encounter; B34.9 Viral infection, unspecified; K21.9 Gastro-esophageal reflux disease without esophagitis; E78.5 Hyperlipidemia, unspecified; F32.A Depression, unspecified; W19.XXXA Unspecified fall, initial encounter; Z79.82 Long term (current) use of aspirin
CPT/HCPCS: 36415; 80048; 82948; 85025; 85610; 85730; 93005; 97116; 97161; 97165; 99199; A9270; C1713; C1769; J0690; J0696; J1171; J1741; J1885; J2250; J2405; J2704; J3010; J7120

== ENCOUNTER 2024-06-26 07:15 | Outpatient (CLI) | payer MEDICARE, SELFPAY ==
--- NOTE | ~2024-06-26 | DEXA_ITS ---
Bone Density Report Name: MARTIN COHEN Age: 69 Sex: Female Ethnicity: White Date of : 1955 Indication: postmenopausal; screening for osteoporosis; Referring Provider: STAS GOMEZ Study: Bone densitometry was performed. Exam Date: June 26, 2024 Accession number: [id number] Bone Density: Region BMD T-score Z-score Classification AP Spine(L1-L4) 0.920 -1.2 0.8 Osteopenia Femoral Neck (Left) 0.635 -1.9 -0.3 Osteopenia Total Hip (Left) 0.896 -0.4 1.0 Normal Femoral Neck (Right) 0.585 -2.4 -0.7 Osteopenia Total Hip (Right) 0.833 -0.9 0.4 Normal Total Hip Mean 0.864 -0.7 0.7 Normal World Health Organization criteria for BMD impression classify patients as: Normal (T-score at or above -1.0), Osteopenia (T-score between -1.0 and -2.5), or Osteoporosis (T-score at or below -2.5). 10-year Fracture Risk(1): Major Osteoporotic Fracture 13% Hip Fracture 2.6% Reported Risk Factors: [place] (), Neck BMD=0.585, BMI=27.5 (1) FRAX(R) Version 3.08. Fracture probability calculated for an untreated patient. Fracture probability may be lower if the patient has received treatment. Clinical Information Provided by Patient: Patient maximum height was 63 Menopause Age: 57 Drinks caffeinated beverages Onset of menses at age 17 Number of children 2 Impression: The patient has low bone mass, based on the Right Femoral Neck T-score. The patient has an estimated ten-year risk of hip fracture of 2.6% and an estimated ten-year risk of major fracture of 13%, based on the WHO FRAX algorithm. Discussion: BONE DENSITY IS LOW AT ONE OR MORE SKELETAL SITES. This patient's lowest T-score is low at one or more skeletal sites. It meets the World Health Organization's (WHO) criteria for “low bone mass” (T-score between -1.0 and -2.5). The patient's 10-year risk of fracture as calculated by FRAX is less than the threshold where pharmacological therapy is recommended by the National Osteoporosis Foundation (NOF). However, all treatment decisions require clinical judgment and consideration of individual patient factors, including patient preferences, comorbidities, previous drug use, risk factors not captured in the FRAX model (e.g., frailty, falls, vitamin D deficiency, increased bone turnover, interval significant decline in bone density) and possible under or overestimation of fracture risk by FRAX. The patient should follow a healthful lifestyle (good nutrition with adequate calcium and vitamin D, and appropriate weight-bearing exercise). Follow-Up: Consider repeating this study in 2 to 3 years to reassess this patient's status, or sooner if there is some new clinical indication. Reported by: ELIDA on 06/26/2024 7:55:00 AM. Reviewed, dictated and finalized at location A.
--- OUTSIDE RECORDS SUMMARY | 2024-06-26 07:19 | XMS_ITS | Referral Summary ---
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
--- OUTSIDE RECORDS SUMMARY | 2024-06-26 07:19 | XMS_ITS | Clinical Summary ---
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
--- OUTSIDE RECORDS SUMMARY | 2024-06-26 07:19 | XMS_ITS | Clinical Summary ---
Author Organization [facility] Address [address] [place] [address] Care Team Providers Care Adjunct Professor Name Role Phone Rolando Guevara MD Primary Care Provider [phone] Source Comments [facility],non-owned Affiliates and Associated Physician Practices is amultiple site organization consisting of ambulatory clinics and hospital sitesin [place], [place], [place] and [place]. This disclosure is being madepursuant to the Care Everywhere program and may not contain all information available regarding this patient. Last updated 17.[facility] Allergies No known active allergies Medications * This document contains information received from the source organization and may not represent a complete record from that organization. * Be aware that medications may not be up to date on this document. Alwaysverify current medications with the patient. esomeprazole (NEXIUM) 40 MG capsule TK 1 C PO D 3 8 Active rosuvastatin (CRESTOR) 5 MG tablet TK 1 T PO QD 3 8 Active aspirin (ASPIRIN) 81 MG chew tablet Take 1 (one) tablet by mouth once daily Active traZODone (DESYREL) 50 MG tablet Take 1 (one) tablet by mouth at bedtime 90 tablet 1 Active Additional Information Patient not taking.Reported on 01/18/2022 venlafaxine XR 24hr (Effexor XR) 75 MG capsule Take 3 (three) capsules by mouth once daily 270 capsule 3 4 Active Active Problems Problem Noted Date Diagnosed [...] Recorded Patient Health Questionnaire-2 Score 1 03/27/2023 Comments Unknown Sex and Gender Information Value Date Recorded Sex Assigned at Not on file Legal Sex Female 6:42 PM [facility] SPECIAL[facility] Gender Identity Not on file Sexual Orientation Not on file Last Filed Vital Signs Vital Sign Reading Time Taken Comments Blood Pressure 131/71 06/26/2023 2:36 PM CDT Pulse 79 06/26/2023 2:36 PM CDT Temperature 37.1 C (98.7 F) 06/26/2023 2:36 PM CDT Respiratory Rate 20 01/18/2022 10:40 AM CALL 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 SPECIALIST Oxygen Saturation 97% 08/06/2022 1:12 PM CDT [...] 07/27/2014 SCREENING FOR DIABETES 10/28/2019 COVID-19 VACCINE ( - season) 2023 DEPRESSION SCREENING 02/12/2024 03/27/2023, 11/07/2022, 08/06/2022, Additional history exists INFLUENZA VACCINE (Season Ended) 2024 Respiratory Syncytial Virus (RSV) Vaccine Pt: [...] complete this topic MENINGOCOCCAL (Group B) VACCINE SHARED DECISION-MAKING Aged Out No longer eligible based on patient's age to complete this topic MENINGOCOCCAL GROUPS A/C/Y/W VACCINE Aged Out No longer eligible based on patient's age to complete this topic Insurance T [employer] MEDICARE ADV Care Teams Adjunct Professor Relationship Specialty Start Date End Date Rolando Guevara MD [address] [place] [address] PCP - General 12/24/20
== END 2024-06-26 07:16 | disposition home or self-care (01) ==
LOC: ANHIMG 07:17
PROVIDERS: PCP Family Medicine; Visit Provider Family Medicine
DX: Z78.0 Asymptomatic menopausal state (principal); M85.88 Other specified disorders of bone density and structure, other site; M85.852 Other specified disorders of bone density and structure, left thigh; M85.851 Other specified disorders of bone density and structure, right thigh
CPT/HCPCS: 77080

== ENCOUNTER 2024-12-08 07:32 | Outpatient (CLI) | payer MEDICARE, SELFPAY ==
[2024-12-08 08:55] LABS: Alanine Aminotransferase 15 U/L (6-35); Albumin Level 4.3 g/dL (3.5-5.1); Alkaline Phosphatase 57 U/L (38-126); Anion Gap 5 mmol/L (4-12); Aspartate Amino Transferase 29 U/L (14-36); Bilirubin,Total 0.4 mg/dL (0.2-1.3); Blood Urea Nitrogen 18 mg/dL (7-17); Calcium 9.1 mg/dL (8.4-10.2); Carbon Dioxide 30 mmol/L (22-30); Chloride 104 mmol/L (98-107); Estimated Glomerular Filt Rate 52; Glucose 100 mg/dL (65-110); Potassium 4.1 mmol/L (3.4-5.0); Sodium 139 mmol/L (137-145); Total Protein 7.2 g/dL (6.3-8.2)
== END 2024-12-08 07:33 | disposition home or self-care (01) ==
LOC: ANHLAB 07:33
PROVIDERS: PCP Family Medicine; Visit Provider Physician Assistant Medical
DX: F32.9 Major depressive disorder, single episode, unspecified (principal); E78.5 Hyperlipidemia, unspecified; Z00.00 Encounter for general adult medical examination without abnormal findings
CPT/HCPCS: 36415; 80053